=== PATIENT | male | born 1935 | race Caucasian/White ===

== ENCOUNTER → 2017-01-12 | Outpatient (CLI) | payer MEDICARE ==
--- NOTE | 2017-01-13 14:58 | ECHOS ---
DATE OF SERVICE: 01/12/2017 AGE: 81Y SEX: M HT: 69" WT: 170 lbs. Protocol Edgardo: X Others: Stress Echo Stage: 2 Dur. of Exercise: 4:00 *Heart Rate Blood Pressure *Rest: 75 Rest: 150/88 * *Max. Achieved: 140 Maximum BP: 200/95 85% PMHR: 117 100% PMHR: 138 *METS: 6.2 INDICATIONS: Angina. MEDICATIONS: Centrum Silver, aspirin, lisinopril, atorvastatin, atenolol. Patient was exercised for a total period of 4 minutes. A peak heart rate of 140 was achieved. Maximum blood pressure was 200/95 mmHg was noted. Resting EKG shows normal sinus rhythm with normal SD interval and QRS morphology suggestive of right bundle branch block pattern was noted. There were mild ST-T changes noted in lead V2 to V4. The baseline echocardiographic images show evidence of moderate degree of hypokinesia in the mid-basal and mid-inferior and inferior lateral wall in the immediate postexercise period. The inferior and inferolateral hypokinesia persists. Myocardial segment shows was normal increase in the wall thickness and contractility. FINAL IMPRESSION: 1. This stress echocardiographic study shows moderate to severe hypokinesia involving the mid and basal inferior wall and inferolateral segment which persists in the immediate postexercise period. This is suggestive of prior myocardial infarction. 2. Most of the stress test is inconclusive to diagnose ischemia because of the resting right bundle branch block and ST segment abnormalities. 3. Patient did not complain of any anginal pain during the test.
== END | disposition home or self-care (01) ==
LOC: RADNMMAIN 09:44
PROVIDERS: ATTEND Internal Medicine Geriatric Medicine
DX: I51.89 Other ill-defined heart diseases (principal); I25.119 Atherosclerotic heart disease of native coronary artery with unspecified angina pectoris
CPT/HCPCS: 93017; 93350

== ENCOUNTER → 2017-02-22 | Outpatient (CLI) | payer MEDICARE ==
--- NOTE | 2017-02-22 11:32 | US ---
EXAMINATION TYPE: US carotid duplex BILAT DATE OF EXAM: 02/22/2017 10:40 AM COMPARISON: NONE CLINICAL HISTORY: I65.29 stenosis of carotid artery. EXAM MEASUREMENTS: RIGHT: Peak Systolic Velocity (PSV) cm/sec ----- Right CCA: 57.5 ----- Right ICA: 65.3 ----- Right ECA: 89.2 ICA/CCA ratio: 1.1 RIGHT: End Diastole cm/sec ----- Right CCA: 11.3 ----- Right ICA: 20.0 ----- Right ECA: 5.0 LEFT: Peak Systolic Velocity (PSV) cm/sec ----- Left CCA: 65.3 ----- Left ICA: 75.7 ----- Left ECA: 89.7 ICA/CCA ratio: 1.2 LEFT: End Diastole cm/sec ----- Left CCA: 13.0 ----- Left ICA: 24.1 ----- Left ECA: 8.4 VERTEBRALS (direction of flow): Right Vertebral: Antegrade Left Vertebral: Antegrade Plaque seen in mid right CCA. Plaque seen in left bulb extending into prox ICA. Bilateral wall thic kening. No significant stenosis or elevated velocities seen. IMPRESSION: I do not see evidence of a hemodynamically significant stenosis in either carotid system. Criteria for Assigning % of Stenosis / Diameter reduction (Estimation based on the indirect measurements of the internal carotid artery velocities (ICA PSV). 1. Normal (no stenosis)=ICA PSV < 125 cm/s: ratio < 2.0: ICA EDV<40 cm/s. 2. Less than 50% stenosis=ICA PSV < 125 cm/s: ratio < 2.0: ICA EDV<40 cm/s. 3. 50 to 69% stenosis=ICA PSV of 125 to 230 cm/s: ration 2.0 ? 4.0: ICA EDV 40-100 cm/s. 4. Greater than 70% stenosis to near occlusion= ICA PSV > 230 cm/s: ratio > 4.0: ICA EDV > 100 cm/s. 5. Near occlusion= ICA PSV velocities may be low or undetectable: variable ratio and ICA EDV. 6. Total occlusion=unable to detect flow.
--- NOTE | 2017-02-22 12:29 | ECHOF ---
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 MEASUREMENTS -------- HEIGHT: 175.3 cm WEIGHT: 77.1 kg BP: 145/75 RVIDd: 2.9 cm (< 3.3) IVSd: 1.6 cm (0.6 - 1.1) LVIDd: 4.9 cm (3.9 - 5.3) LVPWd: 1.3 cm (0.6 - 1.1) IVSs: 2.1 cm LVIDs: 4.3 cm LVPWs: 1.3 cm LA Diam: 4.7 cm (2.7 - 3.8) LAESV Index (A-L): 46.00 ml/m Ao Diam: 3.2 cm (2.0 - 3.7) AV Cusp: 1.9 cm (1.5 - 2.6) LA Diam: 3.1 cm (2.7 - 3.8) MV EXCURSION: 17.180 mm (> 18.000) MV EF SLOPE: 102 mm/s (70 - 150) EPSS: 1.2 cm MV E Mario: 0.78 m/s MV DecT: 319 ms MV A Mario: 0.44 m/s MV E/A Ratio: 1.79 AR PHT: 1419 ms RAP: 5.00 mmHg RVSP: 48.14 mmHg FINDINGS -------- Sinus rhythm with extra systolic beats. This was a technically good study. There is moderate concentric left ventricular hypertrophy. Overall left ventricular systolic function is mild-moderately impaired with, an EF between 40 - 45 %. Basal posterior LV wall motion is akinetic. Basal inferior LV wall motion is akinetic. Mid posterior LV wall motion is akinetic. Mid inferior LV wall motion is hypokinetic. The right ventricle is normal in size. LA is severely dilated >40 ml/m2 The right atrial size is normal. Aortic valve is trileaflet and is mildly thickened. There is mild aortic regurgitation. The mitral valve leaflets are mildly thickened. Mild mitral annular calcification present. The peak and mean MV gradients are 2.51mmHg 0.99mmHg as measured by doppler. Mild tricuspid regurgitation present. There is mild to moderate pulmonary hypertension. The right ventricular systolic pressure, as measured by Doppler, is 48.14mmHg. Trace/mild (physiologic) pulmonic regurgitation. The aortic root size is normal. Normal inferior vena cava with normal inspiratory collapse consistent with estimated right atrial pressure of 5 mmHg. There is no pericardial effusion. CONCLUSIONS -------- 1. Sinus rhythm with extra systolic beats. 2. The right atrial size is normal. 3. Aortic valve is trileaflet and is mildly thickened. 4. There is mild aortic regurgitation. 5. The mitral valve leaflets are mildly thickened. 6. Mild mitral annular calcification present. 7. The peak and mean MV gradients are 2.51mmHg 0.99mmHg as measured by doppler. 8. Mild tricuspid regurgitation present. 9. There is mild to moderate pulmonary hypertension. 10. The right ventricular systolic pressure, as measured by Doppler, is 48.14mmHg. 11. Trace/mild (physiologic) pulmonic regurgitation. 12. This was a technically good study. 13. The aortic root size is normal. 14. Normal inferior vena cava with normal inspiratory collapse consistent with estimated right atrial pressure of 5 mmHg. 15. There is no pericardial effusion. 16. There is moderate concentric left ventricular hypertrophy. 17. Basal posterior LV wall motion is akinetic. 18. Basal inferior LV wall motion is akinetic. 19. Mid posterior LV wall motion is akinetic. 20. Mid inferior LV wall motion is hypokinetic. 21. The right ventricle is normal in size. 22. LA is severely dilated >40 ml/m2 LIFE SCIENCE RESEARCH ASSISTANT: Oj Young RDCS
== END ==
LOC: RADUSWWP 10:01
PROVIDERS: ATTEND Internal Medicine Geriatric Medicine
DX: I65.29 Occlusion and stenosis of unspecified carotid artery (principal)
CPT/HCPCS: 93306; 93880

== ENCOUNTER → 2018-07-05 | Outpatient (CLI) | payer MEDICARE ==
--- NOTE | 2018-07-05 09:54 | US ---
EXAMINATION TYPE: US carotid duplex BILAT DATE OF EXAM: 07/05/2018 COMPARISON: US CLINICAL HISTORY: I42.9 Cardiomyopathy,I65.29 Carotid occlusion/sten. EXAM MEASUREMENTS: RIGHT: Peak Systolic Velocity (PSV) cm/sec ----- Right CCA: 51.4 ----- Right ICA: 62.1 ----- Right ECA: 65.5 ICA/CCA ratio: 1.2 RIGHT: End Diastole cm/sec ----- Right CCA: 13.0 ----- Right ICA: 22.5 ----- Right ECA: 6.0 LEFT: Peak Systolic Velocity (PSV) cm/sec ----- Left CCA: 55.5 ----- Left ICA: 71.5 ----- Left ECA: 45.6 ICA/CCA ratio: 1.3 LEFT: End Diastole cm/sec ----- Left CCA: 11.0 ----- Left ICA: 26.2 ----- Left ECA: 6.7 VERTEBRALS (direction of flow): Right Vertebral: Antegrade Left Vertebral: Antegrade Rhythm: Arrhythmia IMPRESSION: Moderate atherosclerotic changes with no significant velocity elevations. Criteria for Assigning % of Stenosis / Diameter reduction (Estimation based on the indirect measurements of the internal carotid artery velocities (ICA PSV). 1. Normal (no stenosis)=ICA PSV < 125 cm/s: ratio < 2.0: ICA EDV<40 cm/s. 2. Less than 50% stenosis=ICA PSV < 125 cm/s: ratio < 2.0: ICA EDV<40 cm/s. 3. 50 to 69% stenosis=ICA PSV of 125 to 230 cm/s: ration 2.0 ? 4.0: ICA EDV 40-100 cm/s. 4. Greater than 70% stenosis to near occlusion= ICA PSV > 230 cm/s: ratio > 4.0: ICA EDV > 100 cm/s. 5. Near occlusion= ICA PSV velocities may be low or undetectable: variable ratio and ICA EDV. 6. Total occlusion=unable to detect flow.
--- NOTE | 2018-07-05 11:00 | ECHOF ---
Referral Reason:I42.9 Cardiomyopathy,I65.29 Carotid occlusion/sten MEASUREMENTS -------- HEIGHT: 175.3 cm WEIGHT: 76.2 kg BP: 167/79 RVIDd: 3.5 cm (< 3.3) IVSd: 1.6 cm (0.6 - 1.1) LVIDd: 5.2 cm (3.9 - 5.3) LVPWd: 1.5 cm (0.6 - 1.1) IVSs: 2.3 cm LVIDs: 4.4 cm LVPWs: 1.7 cm LA Diam: 4.2 cm (2.7 - 3.8) LAESV Index (A-L): 48.72 ml/m Ao Diam: 3.5 cm (2.0 - 3.7) AV Cusp: 2.0 cm (1.5 - 2.6) MV EXCURSION: 15.271 mm (> 18.000) MV EF SLOPE: 50 mm/s (70 - 150) EPSS: 1.5 cm AV maxP.38 mmHg AV meanP.72 mmHg AR PHT: 670 ms RAP: 5.00 mmHg RVSP: 58.03 mmHg FINDINGS -------- This was a technically good study. The left ventricular size is normal. There is moderate concentric left ventricular hypertrophy. O verall left ventricular systolic function is moderately impaired with, an EF between 35 - 40 %. Bas al inferior LV wall motion is hypokinetic. Basal inferoseptal LV wall motion is hypokinetic. The right ventricle is mildly enlarged. LA is severely dilated >40 ml/m2 The right atrium is normal in size. There is mild aortic valve sclerosis. There is mild aortic regurgitation. Peak/mean gradient acro ss the Aortic Valve is 11.38mmHg / 4.72mmHg. The mitral valve leaflets are mildly thickened. Mild mitral annular calcification present. Mild m itral regurgitation is present. Moderate tricuspid regurgitation present. There is severe pulmonary hypertension. The right ventr icular systolic pressure, as measured by Doppler, is 58.03mmHg. Moderate pulmonic regurgitation. The aortic root size is normal. Normal inferior vena cava with normal inspiratory collapse consistent with estimated right atrial pre ssure of 5 mmHg. There is no pericardial effusion. CONCLUSIONS -------- 1. This was a technically good study. 2. The left ventricular size is normal. 3. There is moderate concentric left ventricular hypertrophy. 4. Overall left ventricular systolic function is moderately impaired with, an EF between 35 - 40 %. 5. Basal inferior LV wall motion is hypokinetic. 6. Basal inferoseptal LV wall motion is hypokinetic. 7. The right ventricle is mildly enlarged. 8. LA is severely dilated >40 ml/m2 9. The right atrium is normal in size. 10. There is mild aortic valve sclerosis. 11. There is mild aortic regurgitation. 12. Peak/mean gradient across the Aortic Valve is 11.38mmHg / 4.72mmHg. 13. The mitral valve leaflets are mildly thickened. 14. Mild mitral annular calcification present. 15. Mild mitral regurgitation is present. 16. Moderate tricuspid regurgitation present. 17. There is severe pulmonary hypertension. 18. The right ventricular systolic pressure, as measured by Doppler, is 58.03mmHg. 19. Moderate pulmonic regurgitation. 20. The aortic root size is normal. 21. Normal inferior vena cava with normal inspiratory collapse consistent with estimated right atrial pressure of 5 mmHg. 22. There is no pericardial effusion. MARINE HABITAT RESOURCE SPECIALIST: Catherine Canales RDCS
== END | disposition home or self-care (01) ==
LOC: RADECHMAIN 08:12
PROVIDERS: ATTEND Internal Medicine Geriatric Medicine
DX: I65.23 Occlusion and stenosis of bilateral carotid arteries (principal); I08.3 Combined rheumatic disorders of mitral, aortic and tricuspid valves
CPT/HCPCS: 93306; 93880

== ENCOUNTER 2020-04-04 20:20 | Inpatient (IN) | payer MEDICARE ==
[2020-04-04 20:58] LABS: Basophils % (A) 0 %; Eosinophils # (A) 0.3 k/uL (0-0.7); Eosinophils % (A) 6 %; HCT 37.3 % (39.0-53.0); HGB 12.5 gm/dL (13.0-17.5); Lymphocytes # (A) 0.5 k/uL (1.0-4.8); Lymphocytes % (A) 7 %; MCH 33.9 pg (25.0-35.0); MCHC 33.6 g/dL (31.0-37.0); Macrocytosis Slight; Mean Platelet Volume 8.1; Monocytes # (A) 0.4 k/uL (0-1.0); Monocytes % (A) 6 %; Neutrophils # (A) 5.1 k/uL (1.3-7.7); Neutrophils % (A) 80 %; Platelet Count 145 k/uL (150-450); RDW 14.1 % (11.5-15.5); WBC 6.3 k/uL (3.8-10.6)
[2020-04-04 21:07] LABS: ALT 28 U/L (4-49); AST 50 U/L (17-59); African American GFR (CKD) >90 (>60 ml/min/1.73 sqM); Albumin 3.5 g/dL (3.5-5.0); Alkaline Phosphatase 87 U/L (38-126); Anion Gap 8 mmol/L; Blood Urea Nitrogen 17 mg/dL (9-20); Calcium 8.7 mg/dL (8.4-10.2); Carbon Dioxide 24 mmol/L (22-30); Chloride 106 mmol/L (98-107); Glucose 196 mg/dL (74-99); Magnesium 2.1 mg/dL (1.6-2.3); Non-African American GFR(CKD) 89 (>60 ml/min/1.73 sqM); Sodium 138 mmol/L (137-145); Total Bilirubin 0.4 mg/dL (0.2-1.3)
--- NOTE | 2020-04-04 21:11 | XR ---
EXAMINATION TYPE: XR chest 2V DATE OF EXAM: 04/04/2020 COMPARISON: NONE HISTORY: Dizziness TECHNIQUE: FINDINGS: Heart is enlarged. There is no heart failure. There is hiatal hernia. Costophrenic angles a re clear. Thoracic aorta is atheromatous. There are sternal wires. There is arthritic change in the r ight shoulder joint with severe subacromial joint space narrowing. IMPRESSION: Cardiomegaly. No active cardiopulmonary disease.
--- NOTE | 2020-04-04 21:12 | XR ---
EXAMINATION TYPE: XR ankle complete RT DATE OF EXAM: 04/04/2020 COMPARISON: NONE HISTORY: Pain TECHNIQUE: 3 views FINDINGS: There is nondisplaced oblique fracture distal fibula. There is lateral soft tissue swelling . Ankle mortise is anatomic. There is plantar calcaneal spurring. Subtalar joint is normal. IMPRESSION: Acute nondisplaced fracture distal fibula.
--- NOTE | 2020-04-04 21:14 | ED ---
Chest Pain HPI - General Chief Complaint: Chest Pain Stated Complaint: Chest Pain Time Seen by Provider: 04/04/20 20:20 Source: patient, EMS, RN notes reviewed, old records reviewed Mode of arrival: EMS - History of Present Illness Initial Comments: This is a 85-year-old male with a history of back problems and history of bypass surgery in the past who states she took 3 prednisone around 5:30 this afternoon and just before admission by EMS today he started developing sweats some lightheadedness he states he went down was out for for 10 or 15 minutes and could not get up sitting up calling 911. He has some nausea some vomiting and left-sided chest pain that felt like an elephant sitting on his chest for a period time is gone right now however. Moderate severity. He is not totally sure that he remembers going down. He also complains right ankle pain is results of the episode. He was brought in by EMS he did have evidence of possible is elevation in lead 3 and a time arrival he denied any nausea vomiting fevers chills sweats palpitations. MD Complaint: chest pain - Related Data Allergies Allergy/AdvReac Type Severity Reaction Status Date / Time Sulfa (Sulfonamide AdvReac Diarrhea Verified 04/04/20 22:10 Antibiotics) Review of Systems ROS Statement: Those systems with pertinent positive or pertinent negative responses have been documented in the HPI. ROS Other: All systems not noted in ROS Statement are negative. Past Medical History Past Medical History: Hypertension, Myocardial Infarction (ME) History of Any Multi-Drug Resistant Organisms: None Reported Past Surgical History: Coronary Bypass/CABG Smoking Status: Current every day smoker Past Alcohol Use History: None Reported Past Drug Use History: None Reported General Exam - General Exam Comments Initial Comments: This is a well-developed well-nourished awake alert oriented times 3 male General appearance: alert, in no apparent distress Head exam: Present: atraumatic, normocephalic, normal inspection Eye exam: Present: normal appearance, PERRL, EOMI. Absent: scleral icterus, conjunctival injection, periorbital swelling ENT exam: Present: normal exam, mucous membranes moist Neck exam: Present: normal inspection, full ROM, other. Absent: tenderness, meningismus, lymphadenopathy Respiratory exam: Present: normal lung sounds bilaterally. Absent: respiratory distress, wheezes, rales, rhonchi, stridor Cardiovascular Exam: Present: regular rate, normal rhythm, normal heart sounds. Absent: systolic murmur, diastolic murmur, rubs, gallop, clicks GI/Abdominal exam: Present: soft, normal bowel sounds. Absent: distended, tenderness, guarding, rebound, rigid Extremities exam: Present: normal inspection, full ROM, tenderness (Slight tenderness palpation with no step-off or crepitation), normal capillary refill. Absent: pedal edema, joint swelling, calf tenderness Back exam: Present: normal inspection Neurological exam: Present: alert, oriented X3, CN II-XII intact Psychiatric exam: Present: normal affect, normal mood Skin exam: Present: warm, dry, intact, normal color. Absent: rash Course Vital Signs 04/04/20 20:27 Temperature 98.4 F Pulse Rate 81 Respiratory 18 Rate Blood Pressure 143/85 O2 Sat by Pulse 97 Oximetry Procedures - Orthopedic Splinting/Casting Injury #1 Side: right Lower Extremity Injury Location: short leg, ankle Lower Extremity Immobilizer: posterior splint (Posterior short leg OCL 5 x 30 with Fitzgerald roll placed prior and Esteban wrap patient tolerated this well good neurovascular exam afterwards) Chest Pain MDM - MDM I did review the imaging and reports are is evidence of a distal fibula fracture on the right x-rays are unremarkable. I did discuss the patient's case with the patient as well as with Dr. Cano. Patient will be admitted cardiology consultation as well as orthopedic consultation. Disposition Clinical Impression: Syncope and collapse, Chest pain, Closed right ankle fracture Disposition: ADMITTED IP TO THIS [facility] Condition: Fair Referrals: Clifton Blake MD [Primary Care Provider] - 1-2 days
[2020-04-04 21:16] LABS: INR 1.1 (<1.2)
--- NOTE | 2020-04-04 21:57 | XR ---
EXAMINATION TYPE: XR tibia fibula RT DATE OF EXAM: 04/04/2020 COMPARISON: NONE HISTORY: Pain. Fall. TECHNIQUE: 3 views FINDINGS: There is nondisplaced oblique fracture distal fibula. Ankle mortise is anatomic. There is p lantar calcaneal spurring. 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 The patella is intact. IMPRESSION: Acute nondisplaced fracture of the distal fibula.
[2020-04-04] MEDS ORDERED: NITROGLYCERIN SL TABS 0.4 MG TAB SUBLINGUAL PRN (22:14)
--- NOTE | 2020-04-04 22:28 | ED ---
Medical Decision Making - Lab Data Result diagrams: 04/04/20 20:52 04/04/20 20:52 Lab Results 04/04/20 04/04/20 04/04/20 Range/Units 20:52 20:52 20:52 WBC 6.3 (3.8-10.6) k/uL RBC 3.70 L (4.30-5.90) m/uL Hgb 12.5 L (13.0-17.5) gm/dL Hct 37.3 L (39.0-53.0) % MCV 101.0 H (80.0-100.0) fL MCH 33.9 (25.0-35.0) pg MCHC 33.6 (31.0-37.0) g/dL RDW 14.1 (11.5-15.5) % Plt Count 145 L (150-450) k/uL Neutrophils % 80 % Lymphocytes % 7 % Monocytes % 6 % Eosinophils % 6 % Basophils % 0 % Neutrophils # 5.1 (1.3-7.7) k/uL Lymphocytes # 0.5 L (1.0-4.8) k/uL Monocytes # 0.4 (0-1.0) k/uL Eosinophils # 0.3 (0-0.7) k/uL Basophils # 0.0 (0-0.2) k/uL Macrocytosis Slight PT 11.0 (9.0-12.0) sec INR 1.1 (<1.2) APTT 22.0 (22.0-30.0) sec Sodium 138 (137-145) mmol/L Potassium 4.0 (3.5-5.1) mmol/L Chloride 106 (98-107) mmol/L Carbon Dioxide 24 (22-30) mmol/L Anion Gap 8 mmol/L BUN 17 (9-20) mg/dL Creatinine 0.63 L (0.66-1.25) mg/dL Est GFR (CKD-EPI)AfAm >90 (>60 ml/min/1.73 sqM) Est GFR (CKD-EPI)NonAf 89 (>60 ml/min/1.73 sqM) Glucose 196 H (74-99) mg/dL Calcium 8.7 (8.4-10.2) mg/dL Magnesium 2.1 (1.6-2.3) mg/dL Total Bilirubin 0.4 (0.2-1.3) mg/dL AST 50 (17-59) U/L ALT 28 (4-49) U/L Alkaline Phosphatase 87 (38-126) U/L Troponin I (0.000-0.034) ng/mL NT-Pro-B Natriuret Pep pg/mL Total Protein 6.0 L (6.3-8.2) g/dL Albumin 3.5 (3.5-5.0) g/dL Lipase 51 (23-300) U/L 04/04/20 04/04/20 Range/Units 20:52 20:52 WBC (3.8-10.6) k/uL RBC (4.30-5.90) m/uL Hgb (13.0-17.5) gm/dL Hct (39.0-53.0) % MCV (80.0-100.0) fL MCH (25.0-35.0) pg MCHC (31.0-37.0) g/dL RDW (11.5-15.5) % Plt Count (150-450) k/uL Neutrophils % % Lymphocytes % % Monocytes % % Eosinophils % % Basophils % % Neutrophils # (1.3-7.7) k/uL Lymphocytes # (1.0-4.8) k/uL Monocytes # (0-1.0) k/uL Eosinophils # (0-0.7) k/uL Basophils # (0-0.2) k/uL Macrocytosis PT (9.0-12.0) sec INR (<1.2) APTT (22.0-30.0) sec Sodium (137-145) mmol/L Potassium (3.5-5.1) mmol/L Chloride (98-107) mmol/L Carbon Dioxide (22-30) mmol/L Anion Gap mmol/L BUN (9-20) mg/dL Creatinine (0.66-1.25) mg/dL Est GFR (CKD-EPI)AfAm (>60 ml/min/1.73 sqM) Est GFR (CKD-EPI)NonAf (>60 ml/min/1.73 sqM) Glucose (74-99) mg/dL Calcium (8.4-10.2) mg/dL Magnesium (1.6-2.3) mg/dL Total Bilirubin (0.2-1.3) mg/dL AST (17-59) U/L ALT (4-49) U/L Alkaline Phosphatase (38-126) U/L Troponin I 0.030 (0.000-0.034) ng/mL NT-Pro-B Natriuret Pep 914 pg/mL Total Protein (6.3-8.2) g/dL Albumin (3.5-5.0) g/dL Lipase (23-300) U/L - EKG Data -: EKG Interpreted by Me EKG Comments: EKG showed sinus rhythm with artifact in sinus arrhythmia QRS 146 QT since QTC 4:30/4 right ear right bundle-branch block pattern plus RVH also old inferior changes is a consistent finding with EKG is 04/24/13 and with one submitted by EMS Disposition Clinical Impression: Syncope and collapse, Chest pain, Closed right ankle fracture Disposition: ADMITTED IP TO THIS [facility] Condition: Fair Referrals: Clifton Blake MD [Primary Care Provider] - 1-2 days
[2020-04-04] MEDS: HYDROcodone/APAP 5-325MG 1 EACH TAB PO PRN (23:02)
[2020-04-05 04:01] LABS: Cholesterol 108 mg/dL (<200); HDL Cholesterol 32 mg/dL (40-60); LDL Cholesterol,Calculated 69 mg/dL (0-99); Triglycerides 33 mg/dL (<150)
[2020-04-05] MEDS ORDERED: ASPIRIN 325 MG TAB PO SCH (09:00)
[2020-04-05] MEDS ORDERED: ATORVASTATIN 80 MG TAB PO STA (09:33)
[2020-04-05] MEDS ORDERED: NITROGLYCERIN SL TABS 0.4 MG TAB SUBLINGUAL PRN (09:33)
[2020-04-05] MEDS ORDERED: ALPRAZolam 0.5 MG TAB PO PRN (09:33)
[2020-04-05] MEDS ORDERED: ASPIRIN 325 MG TAB PO STA (09:33)
[2020-04-05] MEDS ORDERED: SODIUM CHLORIDE 0.9% 1,000 ML in EMPTY BAG 1 BAG IV ONE (09:33)
[2020-04-05] MEDS ORDERED: ALPRAZolam 0.25 MG TAB PO PRN (09:33)
[2020-04-05] MEDS: CARVEDILOL 3.125 MG TAB PO SCH ×2 (09:41→21:15)
--- NOTE | 2020-04-05 10:53 | ECHOF ---
Referral Reason:mi MEASUREMENTS -------- HEIGHT: 175.3 cm WEIGHT: 54.9 kg BP: 135/69 IVSd: 1.1 cm (0.6 - 1.1) LVIDd: 4.9 cm (3.9 - 5.3) LVPWd: 1.2 cm (0.6 - 1.1) IVSs: 1.8 cm LVIDs: 3.0 cm LVPWs: 1.9 cm LAESV Index (A-L): 39.23 ml/m Ao Diam: 2.9 cm (2.0 - 3.7) AV Cusp: 1.3 cm (1.5 - 2.6) LA Diam: 3.7 cm (2.7 - 3.8) MV EXCURSION: 16.659 mm (> 18.000) MV EF SLOPE: 48 mm/s (70 - 150) EPSS: 1.5 cm MV E Mario: 0.78 m/s MV DecT: 190 ms MV A Mario: 0.71 m/s MV E/A Ratio: 1.09 AV maxP.84 mmHg AV meanP.82 mmHg RAP: 5.00 mmHg RVSP: 39.79 mmHg FINDINGS -------- Sinus rhythm. This was a technically difficult study with suboptimal views. The left ventricular size is normal. There is mild concentric left ventricular hypertrophy. Overa ll left ventricular systolic function is mild-moderately impaired with, an EF between 40 - 45 %. In creased LAP Grade 3 Diastolic Dysfunction. Mid to basal inferiorlateral is hypokinetic The right ventricle is normal in size. LA is moderately dilated 34-39 ml/m2 The right atrial size is normal. Lumason used Unable to visualize the septum. Aortic valve is trileaflet and is mildly thickened. There is mild aortic regurgitation. There is mild aortic stenosis present. Peak/mean gradient across the Aortic Valve is 16.84mmHg / 8.82mmHg. The mitral valve is normal. The mitral valve leaflets are mildly thickened. [id number] mitr al regurgitation is present. The tricuspid valve appears structurally normal. Mild tricuspid regurgitation present. There is m ild pulmonary hypertension. The right ventricular systolic pressure, as measured by Doppler, is 39. 79mmHg. There is no pulmonic regurgitation present. The aortic root size is normal. IVC Not well visulized. There is no pericardial effusion. CONCLUSIONS -------- 1. Sinus rhythm. 2. This was a technically difficult study with suboptimal views. 3. The left ventricular size is normal. 4. There is mild concentric left ventricular hypertrophy. 5. Overall left ventricular systolic function is mild-moderately impaired with, an EF between 40 - 45 %. 6. Increased LAP Grade 3 Diastolic Dysfunction. 7. Mid to basal inferiorlateral is hypokinetic 8. The right ventricle is normal in size. 9. LA is moderately dilated 34-39 ml/m2 10. The right atrial size is normal. 11. Lumason used 12. Unable to visualize the septum. 13. Aortic valve is trileaflet and is mildly thickened. 14. There is mild aortic regurgitation. 15. There is mild aortic stenosis present. 16. Peak/mean gradient across the Aortic Valve is 16.84mmHg / 8.82mmHg. 17. The mitral valve is normal. 18. The mitral valve leaflets are mildly thickened. 19. [id number] mitral regurgitation is present. 20. The tricuspid valve appears structurally normal. 21. Mild tricuspid regurgitation present. 22. There is mild pulmonary hypertension. 23. The right ventricular systolic pressure, as measured by Doppler, is 39.79mmHg. 24. There is no pulmonic regurgitation present. 25. The aortic root size is normal. 26. IVC Not well visulized. 27. There is no pericardial effusion. RN CRITICAL CARE: Annia Edwards PABLO
--- NOTE | 2020-04-05 11:08 | CONS ---
CONSULTATION HISTORY OF PRESENT ILLNESS: Donovan Witt is an 85-year-old gentleman with history of coronary artery disease status post CABG in 1985 and subsequent catheterization and angioplasty somewhere around 1999 and 2012, who presented to hospital with chest pain. The patient initially started having back pain for which he had taken a steroid Dosepak and subsequently developed an episode of chest pressure that he describes as intermittent episodes of precordial chest tightness, moderate intensity, associated with some diaphoresis. This pain happened at rest. He had 2 of these episodes and then he had a syncopal event. He had bladder incontinence. He recovered spontaneously. EMS was called and then the patient came to the ER from where he is admitted. His EKG shows atrial fibrillation with right bundle branch block and extensive ST-T wave changes and evidence of prior inferior wall myocardial infarction. In the process, he also had a fracture of the distal fibula and is currently wearing a cast for the pain. The patient had a chest x- ray that revealed cardiomegaly but was otherwise within normal limits. I have been consulted because of his clinical presentation. He had 2 sets of troponins, 1 of which came back elevated at 0.163. His LDL cholesterol is normal at 69 and his hemoglobin is 12.5 with a platelet count of 145. Creatinine is normal. At the time of my evaluation this morning, patient is comfortable at rest and hemodynamically stable and free of any symptoms. The patient had an echocardiogram in 2018 that showed an ejection fraction of 35% to 40% with mild aortic stenosis and there was severe pulmonary hypertension. The patient had a stress test in 2017 that showed evidence of prior inferior wall myocardial infarction without any evidence of ischemia. Given the patient's clinical presentation and the elevated troponins, I advised him to undergo cardiac catheterization for further evaluation. He has been explained of risks, benefits and alternatives, understood and accepted. PAST MEDICAL HISTORY: Significant for CAD, status post CABG, status post prior angioplasty, hypertension, dyslipidemia, and back pain. The patient has atrial fibrillation. This is new compared to an EKG in 2017. Patient is not on oral anticoagulant. CURRENT MEDICATIONS: Include prednisone, multivitamin, Zestril, Advil, Coreg, Lipitor and aspirin. ALLERGIC: TO SULFA. FAMILY HISTORY: Negative for premature coronary artery disease. SOCIAL HISTORY: Negative for smoking, EtOH abuse or drug abuse. REVIEW OF SYSTEMS: HEENT is unremarkable. CARDIAC as described above. RESPIRATORY as described above. GI negative. GENITOURINARY negative. ALLERGY negative. IMMUNOLOGY: Negative. SKIN negative. ENDOCRINE: Negative. DERM negative. CONSTITUTIONAL negative. ONCOLOGICAL negative. SUPERVISING BAILIFF significant for syncope. PHYSICAL EXAMINATION: On exam, patient is comfortable at rest. Heart rate is 60 beats per minute. Blood pressure is 135/69, respiratory O2 sat is 95% on room air. NECK: There is no jugular venous distention. Carotid upstroke is diminished. There is no bruit. CHEST exam reveals good air entry bilaterally. HEART exam reveals first and second heart sounds. No gallop. No murmur. No rub. ABDOMEN is soft, nontender. Exam of EXTREMITIES did not reveal any edema. Peripheral pulses are felt. There is a cast over the right leg. LAB: Show that the potassium is 4, creatinine is 0.6. Tropes are elevated. LDL is normal. Hemoglobin is normal. ASSESSMENT: 1. Acute non ST-segment elevation myocardial infarction. 2. Syncope. 3. Coronary artery disease, status post coronary artery bypass grafting. 4. Persistent atrial fibrillation with controlled ventricular rate. PLAN: Patient will undergo cardiac catheterization. I am going to review his prior angiographic data and we need to start him on oral anticoagulant upon discharge. I will obtain a 2D echo on him. MMODL / IJN: [id number] /
--- NOTE | 2020-04-05 11:46 | P.HPIM ---
History of Present Illness H&P Date: 04/05/20 Chief Complaint: Chest pain, syncope This is an 85-year-old male patient of Dr. Blake with past medical history of hypertension, myocardial infarction, coronary artery disease status post CABG in 1983 with stent placement in 1999 and 2012, chronic atrial fibrillation not on anticoagulation. Patient states that he he has had ongoing problems with his lower back and was [facility] by Dr. [facility] and saw Dr. Bowles yesterday in the office. Patient was placed on prednisone tapering dose and took his first dose with milk yesterday afternoon. He states he was watching TV and about an hour later he got up to go into the kitchen and was feeling lightheaded, suddenly developed chest pain along with sweats and that is going to pass out. He grabbed the chair and the table and up falling to the floor with loss of consciousness with bladder incontinence. He states he got up with some difficulty and decided call EMS and he was brought into the hospital. Patient was afebrile, heart rate 81, blood pressure initially 143/85, pulse ox 97% on room air. WBC 6.3, hemoglobin 12.5, platelet count 145. Electrolytes within normal limits, BUN 17 creatinine 0.63, but sugar 196. Patient does not have history of diabetes. Troponin 0.030, 0.163, 0.85. Triglycerides 33, cholesterol 108, LDL 69, HDL 32. Tib-fib x-ray showed an acute nondisplaced distal fibula fracture. Echocardiogram revealed EF of 40-45% with mild concentric left ventricular hypertrophy, mild aortic regurgitation, mild aortic stenosis, mild to moderate mitral regurgitation, mild tricuspid regurgitation, mild pulmonary hypertension. Patient admitted to the cardiac stepdown unit and consult in place with orthopedics and cardiology. Review of Systems Constitutional: Denies chills, Denies fatigue, Denies fever, Denies lethargy, Denies malaise, Denies poor appetite, Denies weight loss Eyes: denies blurred vision, denies pain Ears, nose, mouth and throat: Denies dental pain, Denies dysphagia, Denies nasal congestion, Denies nasal discharge, Denies vertigo Cardiovascular: Reports chest pain, Reports lightheadedness, Reports syncope, Denies decreased exercise tolerance, Denies dyspnea on exertion, Denies shortness of breath Respiratory: Denies cough, Denies cough with sputum, Denies dyspnea, Denies excessive sputum, Denies hemoptysis, Denies home oxygen, Denies respiratory infections, Denies wheezing Gastrointestinal: Denies abdominal pain, Denies diarrhea, Denies loss of appetite, Denies nausea, Denies vomiting Genitourinary: Denies dysuria, Denies urinary frequency, Denies urinary retention Musculoskeletal: Denies frequent falls, Denies gait dysfunction, Denies muscle weakness, Denies myalgias Integumentary: Denies pruritus, Denies rash, Denies wounds Neurological: Reports syncope, Denies change in mentation, Denies change in speech, Denies gait dysfunction, Denies numbness, Denies seizures, Denies weakness Psychiatric: Denies anxiety, Denies depression Endocrine: Denies fatigue, Denies weight change Past Medical History Past Medical History: Hypertension, Myocardial Infarction ([place]) Last Myocardial Infarction Date:: unknown History of Any Multi-Drug Resistant Organisms: None Reported Past Surgical History: Coronary Bypass/CABG, Heart Catheterization With Stent Additional Past Surgical History / Comment(s): 1983 CABG Past Anesthesia/Blood Transfusion Reactions: No Reported Reaction Past Psychological History: No Psychological Hx Reported Smoking Status: Current every day smoker Past Alcohol Use History: Daily Additional Past Alcohol Use History / Comment(s): pt states he spokes a pipe a day for 50-60 years. He drinks one beer per day. Patient currently resides alone. Past Drug Use History: None Reported - Past Family History Father Additional Family Medical History / Comment(s): Patient's parents are both and patient does not recall any other medical history. He also does not know medical history of any siblings. Medications and Allergies Home Medications Medication Instructions Recorded Confirmed Type Aspirin 325 mg PO DAILY 04/04/20 04/04/20 History Atorvastatin [Lipitor] 10 mg PO HS 04/04/20 04/04/20 History Baclofen [Lioresal] 5 mg PO BID PRN 04/04/20 04/04/20 History Carvedilol [Coreg] 3.125 mg PO BID 04/04/20 04/04/20 History Ibuprofen [Advil] 200 mg PO Q8HR PRN 04/04/20 04/04/20 History Lisinopril [Zestril] 2.5 mg PO DAILY 04/04/20 04/04/20 History Multivit-Min/FA/Lycopen/Lutein 1 tab PO DAILY 04/04/20 04/04/20 History [Centrum Silver Tablet] Nitroglycerin Sl Tabs [Nitrostat] 0.4 mg SL Q5M PRN 04/04/20 04/04/20 History Ubidecarenone [Co Q-10] 100 mg PO BID 04/04/20 04/04/20 History predniSONE See Taper PO DAILY 04/04/20 04/04/20 History Allergies Allergy/AdvReac Type Severity Reaction Status Date / Time amoxicillin AdvReac Rash/Hives Verified 04/05/20 09:50 Sulfa (Sulfonamide AdvReac Diarrhea Verified 04/04/20 22:10 Antibiotics) Physical Exam Vitals: Vital Signs Temp Pulse Pulse Resp BP BP Pulse Ox 04/05/20 03:55 97.9 F 61 16 135/69 95 04/04/20 23:43 76 18 04/04/20 23:42 97.9 F 76 18 174/84 94 L 04/04/20 23:26 97.9 F 76 18 174/84 94 L 04/04/20 23:00 71 18 133/75 96 04/04/20 22:00 63 16 121/71 97 04/04/20 20:27 98.4 F 81 18 143/85 97 Intake and Output 04/04/20 04/05/20 04/05/20 22:59 06:59 14:59 Intake Total 150 Output Total 650 Balance -500 Intake: Oral 150 Output: Urine 650 Other: Voiding Method Urinal # Voids 2 Weight 82.1 kg 55 kg Gen: This is an 85-year-old male. Patient is sitting on the edge of the bed and appears to be comfortable in no acute distress. HEENT: Head is atraumatic, normocephalic. Pupils equal, round. Sclerae is anicteric. NECK: Supple. No JVD. No lymphadenopathy. No thyromegaly. LUNGS: Clear to auscultation. No wheezes or rhonchi. No intercostal retra ctions. HEART: Irregularly irregular rate and rhythm. No murmur. ABDOMEN: Soft. Bowel sounds are present. No masses. No tenderness. EXTREMITIES: No pedal edema. No calf tenderness. OCL splint on the right lower leg. NEUROLOGICAL: Patient is awake, alert and oriented x3. Cranial nerves 2 through 12 are grossly intact. Results CBC & Chem 7: 04/04/20 20:52 04/04/20 20:52 Labs: Abnormal Lab Results - Last 24 Hours (Table) 04/04/20 04/04/20 04/05/20 Range/Units 20:52 20:52 03:21 RBC 3.70 L (4.30-5.90) m/uL Hgb 12.5 L (13.0-17.5) gm/dL Hct 37.3 L (39.0-53.0) % MCV 101.0 H (80.0-100.0) fL Plt Count 145 L (150-450) k/uL Lymphocytes # 0.5 L (1.0-4.8) k/uL Creatinine 0.63 L (0.66-1.25) mg/dL Glucose 196 H (74-99) mg/dL Troponin I 0.163 H* (0.000-0.034) ng/mL Total Protein 6.0 L (6.3-8.2) g/dL HDL Cholesterol (40-60) mg/dL 04/05/20 Range/Units 03:21 RBC (4.30-5.90) m/uL Hgb (13.0-17.5) gm/dL Hct (39.0-53.0) % MCV (80.0-100.0) fL Plt Count (150-450) k/uL Lymphocytes # (1.0-4.8) k/uL Creatinine (0.66-1.25) mg/dL Glucose (74-99) mg/dL Troponin I (0.000-0.034) ng/mL Total Protein (6.3-8.2) g/dL HDL Cholesterol 32 L (40-60) mg/dL Thrombosis Risk Factor Assmnt - DVT/VTE Prophylaxis DVT/VTE Prophylaxis: Pharmacologic Prophylaxis ordered - Choose All That Apply Any of the Below Risk Factors Present?: Yes Other Risk Factors: Yes Each Risk Factor Represents 3 Points: Age 75 years or older Other congenital or acquired thrombophilia - If yes, enter type in comment: No Thrombosis Risk Factor Assessment Total Risk Factor Score: 3 Thrombosis Risk Factor Assessment Level: Moderate Risk Assessment and Plan Plan: 1. Chest pain and syncopal episode secondary to non-ST elevated myocardial infarction. 2. Non-ST elevated myocardial infarction. Cardiology consult, heart catheterization today. Continue aspirin 325 mg daily, atorvastatin 10 mg at bedtime, Coreg 3.125 mg twice daily, Nitrostat as needed. 3. Hypertension. Continue Coreg. 4. History of coronary artery disease with previous CABG and stent placement done in 1999 and 2012. 5. Chronic atrial fibrillation, controlled rate. 6. GI prophylaxis. Protonix. 7. Tobacco use and dependence. Patient smokes a pipe. 8. COVID-19 infection not present. Patient will be admitted to the hospital for a minimum of 2 night stay. Discharge plan: Return home. Impression and plan of care have been directed as dictated by the signing physician. Tahira Ospina nurse practitioner acting as scribe for signing physician.
[2020-04-05 12:41] VITALS: RESP 18
--- NOTE | 2020-04-05 13:19 | P.CNOR ---
<Damon Nava - Last Filed: 04/05/20 13:04> History of Present Illness - [facility] Consult date: 04/05/20 History of present illness: This patient is an 85-year-old male with past medical history of hypertension, myocardial infarction, CAD with stent placement, chronic atrial fibrillation not currently on anticoagulation presented to [facility] ER yesterday via ambulance after experiencing a syncopal episode in his home. The patient was seen in the office yesterday by Dr. Bowles. The patient was placed on a prednisone taper. The patient states he took his first dose yesterday afternoon, he states about an hour or 2 later he got up to go to the kitchen and began feeling very lightheaded, and started to fall to the ground. He states he did grab the table as he fell. He states he does not remember much following the fall. He is unsure when he injured his ankle. The patient states he ended up getting up after 10-15 minutes with some difficulty, and decided to call EMS. Upon arrival to the emergency department, x-rays of the right ankle revealed an acute distal fibula fracture. The patient was admitted under the care of internal medicine with consult placed to cardiology and orthopedics in regards to his right ankle fracture. At the time of my exam, the patient is complaining of very mild pain in the right ankle. He states he has been able to ambulate on the right ankle without significant pain. He denies pain anywhere else in the body. He has no additional complaints. He denies numbness or tingling of the right lower extremity. Vital signs stable. Past Medical History Past Medical History: Hypertension, Myocardial Infarction ([place]) Last Myocardial Infarction Date:: unknown History of Any Multi-Drug Resistant Organisms: None Reported Past Surgical History: Coronary Bypass/CABG, Heart Catheterization With Stent Additional Past Surgical History / Comment(s): 1983 CABG Past Anesthesia/Blood Transfusion Reactions: No Reported Reaction Past Psychological History: No Psychological Hx Reported Smoking Status: Current every day smoker Past Alcohol Use History: Daily Additional Past Alcohol Use History / Comment(s): pt states he spokes a pipe a day for 50-60 years. He drinks one beer per day. Patient currently resides alone. Past Drug Use History: None Reported - Past Family History Father Additional Family Medical History / Comment(s): Patient's parents are both and patient does not recall any other medical history. He also does not know medical history of any siblings. Medications and Allergies Home Medications Medication Instructions Recorded Confirmed Type Aspirin 325 mg PO DAILY 04/04/20 04/04/20 History Atorvastatin [Lipitor] 10 mg PO HS 04/04/20 04/04/20 History Baclofen [Lioresal] 5 mg PO BID PRN 04/04/20 04/04/20 History Carvedilol [Coreg] 3.125 mg PO BID 04/04/20 04/04/20 History Ibuprofen [Advil] 200 mg PO Q8HR PRN 04/04/20 04/04/20 History Lisinopril [Zestril] 2.5 mg PO DAILY 04/04/20 04/04/20 History Multivit-Min/FA/Lycopen/Lutein 1 tab PO DAILY 04/04/20 04/04/20 History [Centrum Silver Tablet] Nitroglycerin Sl Tabs [Nitrostat] 0.4 mg SL Q5M PRN 04/04/20 04/04/20 History Ubidecarenone [Co Q-10] 100 mg PO BID 04/04/20 04/04/20 History predniSONE See Taper PO DAILY 04/04/20 04/04/20 History Allergies Allergy/AdvReac Type Severity Reaction Status Date / Time amoxicillin AdvReac Rash/Hives Verified 04/05/20 09:50 Sulfa (Sulfonamide AdvReac Diarrhea Verified 04/04/20 22:10 Antibiotics) Physical Examination At the time of my examination, the patient is sitting up in bed in no apparent distress. He is alert and orientated x3. His head appears normocephalic and atraumatic. His breathing appears nonlabored. His bilateral upper extremities reveal no signs of trauma or obvious deformities. His left lower extremity shows no signs of trauma or any obvious deformities. On inspection of the right lower extremity, there is a short-leg splint in place. No pain on palpation of the proximal tibia or fibula, knee, thigh, or hip. No pain PROM of the hip or knee. The splint is taken down and reveals mild swelling of the lateral ankle. No open wounds or lacerations. There is minimal pain on palpation of the lateral malleolus. Minimal pain with passive range of motion of the ankle. Patient has full active range of motion of the ankle. Dorsalis pedis pulse palpable. The right foot is warm and well perfused with brisk capillary refill distally. Motor and sensory function appear to be intact to right lower extremity. Bilateral calves are soft and nontender to palpation. Results Right ankle x-rays 04/04/2020: Minimally displaced Robertson B distal fibula frac ture. Stable ankle mortise. Right tibia-fibula x-rays 04/04/2020: Minimally displaced distal fibula fracture. No fracture is visualized of the proximal fibula or tibia. - Labs Labs: Abnormal Lab Results - Last 24 Hours (Table) 04/04/20 04/04/20 04/05/20 Range/Units 20:52 20:52 03:21 RBC 3.70 L (4.30-5.90) m/uL Hgb 12.5 L (13.0-17.5) gm/dL Hct 37.3 L (39.0-53.0) % MCV 101.0 H (80.0-100.0) fL Plt Count 145 L (150-450) k/uL Lymphocytes # 0.5 L (1.0-4.8) k/uL Creatinine 0.63 L (0.66-1.25) mg/dL Glucose 196 H (74-99) mg/dL Troponin I 0.163 H* (0.000-0.034) ng/mL Total Protein 6.0 L (6.3-8.2) g/dL HDL Cholesterol (40-60) mg/dL 04/05/20 04/05/20 Range/Units 03:21 09:11 RBC (4.30-5.90) m/uL Hgb (13.0-17.5) gm/dL Hct (39.0-53.0) % MCV (80.0-100.0) fL Plt Count (150-450) k/uL Lymphocytes # (1.0-4.8) k/uL Creatinine (0.66-1.25) mg/dL Glucose (74-99) mg/dL Troponin I 0.185 H* (0.000-0.034) ng/mL Total Protein (6.3-8.2) g/dL HDL Cholesterol 32 L (40-60) mg/dL H & H 04/04/20 Range/Units 20:52 Hgb 12.5 L (13.0-17.5) gm/dL Hct 37.3 L (39.0-53.0) % Coagulation 04/04/20 Range/Units 20:52 INR 1.1 (<1.2) Result Diagrams: 04/04/20 20:52 04/04/20 20:52 Assessment and Plan Assessment: Minimally displaced Robertson B distal fibula fracture, right ankle. Plan: - I discussed the clinical and imaging findings with the patient. The patient was discussed with Dr. Bowles. There is no surgical intervention planned during this hospital stay. A tall CAM boot was ordered. The patient may bear weight to tolerance on the right ankle while wearing the tall CAM boot. - Patient should ice and elevate the right ankle for swelling and pain control. - We will obtian a 25- hydroxy vitamin D level to assess for vitamin D insufficiency. - The patient will follow-up in the office in 1 week for repeat x-rays of the right ankle. Patient is ok for discharge from an orthopedic standpoint. <Aaron Bowles - Last Filed: 04/05/20 15:47> Physical Examination Osteopathic Statement: *. No significant issues noted on an osteopathic structural exam other than those noted in the History and Physical/Consult. Results - Labs Labs: Abnormal Lab Results - Last 24 Hours (Table) 04/04/20 04/04/20 04/05/20 Range/Units 20:52 20:52 03:21 RBC 3.70 L (4.30-5.90) m/uL Hgb 12.5 L (13.0-17.5) gm/dL Hct 37.3 L (39.0-53.0) % MCV 101.0 H (80.0-100.0) fL Plt Count 145 L (150-450) k/uL Lymphocytes # 0.5 L (1.0-4.8) k/uL Creatinine 0.63 L (0.66-1.25) mg/dL Glucose 196 H (74-99) mg/dL Troponin I 0.163 H* (0.000-0.034) ng/mL Total Protein 6.0 L (6.3-8.2) g/dL HDL Cholesterol (40-60) mg/dL 04/05/20 04/05/20 Range/Units 03:21 09:11 RBC (4.30-5.90) m/uL Hgb (13.0-17.5) gm/dL Hct (39.0-53.0) % MCV (80.0-100.0) fL Plt Count (150-450) k/uL Lymphocytes # (1.0-4.8) k/uL Creatinine (0.66-1.25) mg/dL Glucose (74-99) mg/dL Troponin I 0.185 H* (0.000-0.034) ng/mL Total Protein (6.3-8.2) g/dL HDL Cholesterol 32 L (40-60) mg/dL H & H 04/04/20 Range/Units 20:52 Hgb 12.5 L (13.0-17.5) gm/dL Hct 37.3 L (39.0-53.0) % Coagulation 04/04/20 Range/Units 20:52 INR 1.1 (<1.2) Result Diagrams: 04/04/20 20:52 04/04/20 20:52 Assessment and Plan Plan: I reviewed the case with carlos Nava. I also reviewed the images of the ankle. I also reviewed them with the foot and ankle specialist. The patient has a minimally displaced lateral malleolus fracture with a maintained joint space. He is placed in a well-padded boot and we are not planning acute surgical intervention at this point. From an orthopedic standpoint it is okay for her to be discharged with the boot intact and to follow up with our office in approximate 1 week's time for recheck evaluation and repeat imaging and further management recommendations and treatment.
[2020-04-05] MEDS ORDERED: IV FLUID CONTINUATION 1,000 ML IV ONE (15:12)
[2020-04-05] MEDS ORDERED: LIDOCAINE 1% INJ 10MG/ML (20 ML MDV) ONE (15:21)
[2020-04-05] MEDS ORDERED: fentaNYL (PF) 50 MCG/ML 2 ML AMP ONE (15:21)
[2020-04-05] MEDS ORDERED: MIDAZOLAM 2 MG/2 ML VIAL IV ONE (15:29)
[2020-04-05] MEDS ORDERED: LIDOCAINE 1% INJ 10MG/ML (20 ML MDV) SQ ONE (15:29)
[2020-04-05] MEDS ORDERED: fentaNYL (PF) 50 MCG/ML 2 ML AMP IV ONE (15:30)
[2020-04-05] MEDS ORDERED: MIDAZOLAM 2 MG/2 ML VIAL IVP ONE ×2 (15:44→15:56)
[2020-04-05] MEDS ORDERED: RX INFO: IV CONTRAST WAS GIVEN 1 EACH MISC MISCELLANE PRN (16:27)
[2020-04-05] MEDS ORDERED: IOPAMIDOL-370 125ML BTL INJ ONE (16:28)
--- NOTE | 2020-04-05 17:04 | CC ---
CARDIAC CATHETERIZATION REPORT INDICATION: [id number] elevation-NM and syncope in a patient with known CAD, status post CABG with RICKS to LAD, RICKS to circumflex coronary artery and angioplasty of sycuan right coronary artery. PROCEDURE NOTE: After obtaining informed consent, left heart catheterization and coronary angiogram were performed via the right femoral artery. The patient has a very tortuous iliac vessel. The initial regular sheath was exchanged over a Glidewire on to a 25 cm long sheath, but because of inability to advance the catheters and the sheath kinking, this was exchanged over to a 23 cm Marker Tip sheath. The cardiac catheterization was completed uneventfully through this. The patient tolerated the procedure well without any obvious immediate complications. Manual hemostasis was obtained. The patient received moderate conscious sedation. Total sedation time was 55 minutes. FINDINGS: 1. HEMODYNAMICS: Central aortic pressure is 130/80 mm. 2. ANGIOGRAPHIC DATA: [place] CORONARIES: The left main coronary artery shows a 99% stenosis. Divides into LAD and circumflex coronary artery. Both are subtotally occluded proximally. RIGHT CORONARY ARTERY: Right coronary artery is a large dominant vessel and was engaged using a nina catheter. It was previously stented from ostium all the way down into the distal RCA. The vessel appears patent. The images were subselective because of the tortuosity of the iliac and inability to manipulate the catheter. The IMA was subselectively engaged. We could not obtain optimal views of the IMA. CONCLUSIONS: 1. [place] 3-vessel coronary artery disease. 2. Occluded venous graft on a previous catheterization. 3. Occluded RICKS on a previous catheterization. 4. Patent stent within the right coronary artery. PLAN: Patient will be treated with optimal medical therapy. I will perform an outpatient stress test on him, and if he has any ischemia in the LAD distribution, we may make another attempt at obtaining optimal use of the IMA. MMODL / IJN: [id number] /
[2020-04-05] MEDS ORDERED: ATORVASTATIN 10 MG TAB PO SCH (21:00)
[2020-04-05] MEDS: HYDROcodone/APAP 5-325MG 1 EACH TAB PO PRN (21:20)
[2020-04-05] MEDS: SODIUM CHLORIDE 0.9% 1,000 ML IV SCH (23:41)
[2020-04-06] MEDS: SODIUM CHLORIDE 0.9% 1,000 ML IV SCH (04:46)
--- NOTE | 2020-04-06 07:40 | P.PN ---
Progress Note - Text Progress Note Date: 04/06/20 Patient is seen and examined today at bedside. He says his ankles feeling well. He is still in his splint. He underwent his catheterization for his heart yesterday and feels good without any shortness of breath or chest pain. On exam he's afebrile stable vital signs His lower extremities has had a well-padded well molded short-leg splint intact. He is moving his toes well sensory is intact Refill less than 2 seconds. Compartments are soft. 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 He underwent his catheterization yesterday and will continue management today. He's continue management in terms of his chronic low back pain with pain control. He has started oral steroids at home which may have contributed to his altered feelings in his chest and lightheadedness. It is okay for him to wean down the steroid due to the side effects. He has a new right ankle fracture. We're attempting conservative treatment at this point. He is currently in a splint and would like to use the splint until he showers at which time he can remove the splint and shower without anything on and then put his boot on. I explained to him that he can go ahead and change into the boot and it is removable for showering as well. When he is in his splint or without the boot on he needs to remain nonweightbearing. He is okay to weight-bear with the tall cam walker boot intact. We will have physical therapy work with him for walker training. I've given her prescription for a walker for home use. From an orthopedic standpoint is okay for the patient to be discharged home when he stable from medical and cardiac standpoint. He will follow-up with us in approximately 1 week's time for recheck evaluation.
[2020-04-06] MEDS: CARVEDILOL 3.125 MG TAB PO SCH (07:44)
[2020-04-06] MEDS: HYDROcodone/APAP 5-325MG 1 EACH TAB PO PRN ×2 (07:44→12:54)
[2020-04-06 08:57] VITALS: BP 181/98; PULSE 88; TEMP 98.2
[2020-04-06] MEDS ORDERED: ASPIRIN 325 MG TAB PO SCH (09:00)
[2020-04-06] MEDS ORDERED: APIXABAN 2.5 MG TABLET PO SCH (09:00)
--- NOTE | 2020-04-06 10:07 | P.DS ---
Providers Date of admission: 04/04/20 22:14 Attending physician: Opal Cano MD Consults: 04/04/20 22:14 Consult Physician Urgent Consulting Provider: Mir Solano Consult Reason/Comments: Chest pain, syncopal episode Do you want consulting provider notified?: Yes 04/05/20 09:08 Consult Physician Routine Consulting Provider: Aaron Bowles Consult Reason/Comments: right ankle fx Do you want consulting provider notified?: Yes Primary care physician: Clifton Hayden [facility] Course: Chief Complaint: Chest pain, syncope This is an 85-year-old male patient of Dr. Blake with past medical history of hypertension, myocardial infarction, coronary artery disease status post CABG in 1983 with stent placement in 1999 and 2012, chronic atrial fibrillation not on anticoagulation. Patient states that he he has had ongoing problems with his lower back and was [facility] Dr[facility] and saw Dr. Bowles yesterday in the office. Patient was placed on prednisone tapering dose and took his first dose with milk yesterday afternoon. He states he was watching TV and about an hour later he got up to go into the kitchen and was feeling lightheaded, suddenly developed chest pain along with sweats and that is going to pass out. He grabbed the chair and the table and up falling to the floor with loss of consciousness with bladder incontinence. He states he got up with some difficulty and decided call EMS and he was brought into the hospital. Patient was afebrile, heart rate 81, blood pressure initially 143/85, pulse ox 97% on room air. WBC 6.3, hemoglobin 12.5, platelet count 145. Electrolytes within normal limits, BUN 17 creatinine 0.63, but sugar 196. Patient does not have history of diabetes. Troponin 0.030, 0.163, 0.85. Triglycerides 33, cholesterol 108, LDL 69, HDL 32. Tib-fib x-ray showed an acute nondisplaced distal fibula fracture. Echocardiogram revealed EF of 40-45% with mild concentric left ventricular hypertrophy, mild aortic regurgitation, mild aortic stenosis, mild to moderate mitral regurgitation, mild tricuspid regurgitation, mild pulmonary hypertension. Patient admitted to the cardiac stepdown unit and consult in place with orthopedics and cardiology. 04/06/2020: Patient underwent a cardiac catheterization yesterday and found to have [place] triple-vessel disease and unable to selectively mop possible RICKS occlusion. At this time is recommendation condition is optimal medical therapy. Patient was evaluated by orthopedics, recommendation is to continue to wear boot when boot is on in place to be nonweightbearing to the right lower extremity. Patient was given a walker with instructions. Patient lives alone and feels comfortable returning home with the support of his family. Patient was instructed he do minimal driving which he verbalized understanding. Discharge diagnosis: 1. Chest pain and syncopal episode secondary to non-ST elevated myocardial infarction. 2. Non-ST elevated myocardial infarction. 3. Hypertension. 4. History of coronary artery disease with previous CABG and stent placement done in 1999 and 2012. 5. Chronic atrial fibrillation, controlled rate. 6. Tobacco use and dependence. Patient smokes a pipe 7. COVID-19 infection not present. Disposition: Return home with self-care Impression and plan of care have been directed as dictated by the signing physician. Yeni King nurse practitioner acting as scribe for signing physician. Patient Condition at Discharge: Fair Plan - Discharge Summary Discharge Rx Participant: No New Discharge Prescriptions: New HYDROcodone/APAP 5-325MG [[place] 5-325] 1 each PO Q6HR PRN #9 tab PRN Reason: Pain Aspirin EC [Ecotrin Low Dose] 81 mg PO DAILY #30 tablet. Continue Multivit-Min/FA/Lycopen/Lutein [Centrum Silver Tablet] 1 tab PO DAILY Ibuprofen [Advil] 200 mg PO Q8HR PRN PRN Reason: Pain Ubidecarenone [Co Q-10] 100 mg PO BID predniSONE See Taper PO DAILY Lisinopril [Zestril] 2.5 mg PO DAILY Carvedilol [Coreg] 3.125 mg PO BID Baclofen [Lioresal] 5 mg PO BID PRN PRN Reason: Muscle Spasm Atorvastatin [Lipitor] 10 mg PO HS Nitroglycerin Sl Tabs [Nitrostat] 0.4 mg SL Q5M PRN PRN Reason: Chest Pain Discontinued Aspirin 325 mg PO DAILY Discharge Medication List Atorvastatin [Lipitor] 10 mg PO HS 04/04/20 [History] Baclofen [Lioresal] 5 mg PO BID PRN 04/04/20 [History] Carvedilol [Coreg] 3.125 mg PO BID 04/04/20 [History] Ibuprofen [Advil] 200 mg PO Q8HR PRN 04/04/20 [History] Lisinopril [Zestril] 2.5 mg PO DAILY 04/04/20 [History] Multivit-Min/FA/Lycopen/Lutein [Centrum Silver Tablet] 1 tab PO DAILY 04/04/20 [History] Nitroglycerin Sl Tabs [Nitrostat] 0.4 mg SL Q5M PRN 04/04/20 [History] Ubidecarenone [Co Q-10] 100 mg PO BID 04/04/20 [History] predniSONE See Taper PO DAILY 04/04/20 [History] Aspirin EC [Ecotrin Low Dose] 81 mg PO DAILY #30 tablet. 04/06/20 [Rx] HYDROcodone/APAP 5-325MG [[place] 5-325] 1 each PO Q6HR PRN #9 tab 04/06/20 [Rx] Follow up Appointment(s)/Referral(s): Clifton Blake MD [Primary Care Provider] - 1-2 days Mateo Palumbo MD [STAFF PHYSICIAN] - 1 Week Jw Pulliam MD [Medical Doctor] - 1 Week Activity/Diet/Wound Care/Special Instructions: With the tall cam boot intact at the right ankle, the patient may weight-bear to tolerance. He should use the boot at all times and while in bed. He may remove it only to shower. With the boot off, the patient needs to remain nonweightbearing. He is given a prescription for a walker for home use. Should try to keep his right ankle elevated. Discharge Disposition: HOME SELF-CARE
--- NOTE | 2020-04-06 13:10 | P.PN ---
Subjective Progress Note Date: 04/06/20 This is an 85-year-old male patient of Dr. Blake with past medical history of hypertension, myocardial infarction, coronary artery disease status post CABG in 1983 with stent placement in 1999 and 2012 presented to the hospital due to feeling lightheaded, suddenly developed chest pain along with sweats and felt like he was going to pass out. He grabbed the chair and the table and up falling to the floor with loss of consciousness with bladder incontinence. He states he got up with some difficulty and decided call EMS and he was brought into the hospital. Patient was afebrile, heart rate 81, blood pressure initially 143/85, pulse ox 97% on room air. WBC 6.3, hemoglobin 12.5, platelet count 145. Electrolytes within normal limits, BUN 17 creatinine 0.63, but sugar 196. Patient does not have history of diabetes. Troponin 0.030, 0.163, 0.85. Triglycerides 33, cholesterol 108, LDL 69, HDL 32. Tib-fib x-ray showed an acute nondisplaced distal fibula fracture. Echocardiogram revealed EF of 40-45% with mild concentric left ventricular hypertrophy, mild aortic regurgitation, mild aortic stenosis, mild to moderate mitral regurgitation, mild tricuspid regurgitation, mild pulmonary hypertension. Patient admitted to the cardiac stepdown unit and consult in place with orthopedics and cardiology. Patient underwent a cardiac catheterization yesterday with Dr. Corinne Solano and found to have [place] triple-vessel disease, occluded venous graft on the previous catheterization, occluded RICKS on previous catheterization, patent stent within the right coronary artery. Plan to treat with medical therapy, outpatient tress test and if ischemia in the LAD distribution, may make another attempt at obtaining RICKS catheterization. The patient denies having any chest pain or shortness of breath. He is anxious to be discharged home today. Patient is cleared by cardiology for discharge. Physical examination: Gen: This is an 85-year-old male. Patient is sitting on the edge of the bed and appears to be comfortable in no acute distress. HEENT: Head is atraumatic, normocephalic. Pupils equal, round. Sclerae is anicteric. NECK: Supple. No JVD. No lymphadenopathy. No thyromegaly. LUNGS: Clear to auscultation. No wheezes or rhonchi. No intercostal retractions. HEART: Irregularly irregular rate and rhythm. No murmur. ABDOMEN: Soft. Bowel sounds are present. No masses. No tenderness. EXTREMITIES: No pedal edema. No calf tenderness. OCL splint on the right lower leg. NEUROLOGICAL: Patient is awake, alert and oriented x3. Cranial nerves 2 through 12 are grossly intact. Assessment: Chest pain and syncopal episode secondary to non-ST elevated myocardial infar ction. Non-ST elevated myocardial infarction. Hypertension. History of coronary artery disease with previous CABG and stent placement done in 1999 and 2012. Chronic atrial fibrillation, controlled rate. Tobacco use and dependence. Patient smokes a pipe Atrial fibrillation ruled out Plan: Continue aspirin, atorvastatin, Lipitor Follow-up with cardiology in 1 week Patient is cleared for discharge home Nurse practitioner note has been reviewed, I agree with documented findings and plan of care. Patient was seen and examined. Objective - Vital Signs Vital signs: Vital Signs Temp 98.2 F 04/06/20 07:50 Pulse 88 04/06/20 07:50 Resp 18 04/06/20 07:50 BP 181/98 04/06/20 07:50 Pulse Ox 97 04/06/20 07:50 Intake & Output 04/05/20 04/06/20 04/06/20 18:59 06:59 18:59 Intake Total 300 90 Output Total 500 150 200 Balance -200 -150 -110 Weight 86.5 kg Intake: IV 100 Oral 200 90 Output: Urine 500 150 200 Other: Voiding Method Urinal Urinal # Voids 2 2 1 - Labs CBC & Chem 7: 04/04/20 20:52 04/04/20 20:52 Labs: Abnormal Lab Results - Last 24 Hours (Table) 04/05/20 04/05/20 Range/Units 03:21 09:11 Troponin I 0.185 H* (0.000-0.034) ng/mL Vitamin D 25-Hydroxy 24.8 L (30.0-100.0) ng/mL
== END 2020-04-06 13:35 | disposition home or self-care (01) | DRG 281 ==
LOC: EC 20:20 → 3SCARD 22:14
PROVIDERS: ADMIT Internal Medicine; ATTEND Internal Medicine
PROC: B2111ZZ Fluoroscopy of Multiple Coronary Arteries using Low Osmolar Contrast (ICD-10-PCS; principal; 2020-04-05 12:50)
PROC: 4A023N7 Measurement of Cardiac Sampling and Pressure, Left Heart, Percutaneous Approach (ICD-10-PCS; principal; 2020-04-05 12:50)
PROC: B2131ZZ Fluoroscopy of Multiple Coronary Artery Bypass Grafts using Low Osmolar Contrast (ICD-10-PCS; principal; 2020-04-05 12:50)
DX: I21.4 Non-ST elevation (NSTEMI) myocardial infarction (principal); I48.19 Other persistent atrial fibrillation; I25.10 Atherosclerotic heart disease of native coronary artery without angina pectoris; I27.20 Pulmonary hypertension, unspecified; I10 Essential (primary) hypertension; F17.290 Nicotine dependence, other tobacco product, uncomplicated; S82.61XA Displaced fracture of lateral malleolus of right fibula, initial encounter for closed fracture; G89.29 Other chronic pain; E78.5 Hyperlipidemia, unspecified; I08.3 Combined rheumatic disorders of mitral, aortic and tricuspid valves; R32 Unspecified urinary incontinence; W18.30XA Fall on same level, unspecified, initial encounter; Z60.2 Problems related to living alone; I45.10 Unspecified right bundle-branch block; Z11.59 Encounter for screening for other viral diseases; Z79.82 Long term (current) use of aspirin; Z88.2 Allergy status to sulfonamides; I25.2 Old myocardial infarction; Z95.5 Presence of coronary angioplasty implant and graft; Z95.1 Presence of aortocoronary bypass graft; Z79.899 Other long term (current) drug therapy
CPT/HCPCS: 29515; 36415; 71046; 80053; 80061; 82306; 83690; 83735; 83880; 84484; 85025; 85610; 85730; 87635; 93005; 93306; 93455; 99285

== ENCOUNTER 2020-07-12 09:33 | Inpatient (IN) | payer MEDICARE ==
[2020-07-12] MEDS ORDERED: SODIUM CHLORIDE 0.9% 500 ML 500 ML IV STA (09:53)
[2020-07-12] MEDS ORDERED: DILTIAZEM DRIP BOLUS FROM BAG 1 MG SOLN IV ONE (09:58)
[2020-07-12] MEDS: DILTIAZEM 125 MG in SODIUM CHLORIDE 0.9% 100 ML IV SCH (10:14)
[2020-07-12 10:18] LABS: Basophils % (A) 0 %; Eosinophils # (A) 0.1 k/uL (0-0.7); Eosinophils % (A) 1 %; HCT 43.9 % (39.0-53.0); HGB 14.2 gm/dL (13.0-17.5); Lymphocytes # (A) 0.9 k/uL (1.0-4.8); Lymphocytes % (A) 9 %; MCH 33.1 pg (25.0-35.0); MCHC 32.3 g/dL (31.0-37.0); MCV 102.2 fL (80.0-100.0); Macrocytosis Slight; Mean Platelet Volume 8.6; Monocytes # (A) 0.6 k/uL (0-1.0); Monocytes % (A) 6 %; Neutrophils # (A) 8.9 k/uL (1.3-7.7); Neutrophils % (A) 84 %; Platelet Count 145 k/uL (150-450); RBC 4.29 m/uL (4.30-5.90); RDW 12.8 % (11.5-15.5); WBC 10.6 k/uL (3.8-10.6)
[2020-07-12] MEDS ORDERED: ASPIRIN 81 MG PO STA (10:21)
--- NOTE | 2020-07-12 10:21 | ED ---
General Adult HPI - General Chief complaint: Chest Pain Stated complaint: chest pain Time Seen by Provider: 07/12/20 09:35 Source: patient, RN notes reviewed, old records reviewed Mode of arrival: ambulatory Limitations: no limitations - History of Present Illness Initial comments: This is an 85-year-old male who presents to the emergency department complaining of having chest pains which started last night about 7:00 when he was working on something and got frustrated. Patient states the pain is left-sided chest and made him sweat as well as that time. Patient states she woke up today and the pain was still there. Patient denies any radiation of pain however he does complain that there is some shortness of breath. Patient denies any nausea vomiting. Patient denies headache patient denies numbness weakness. Patient denies lightheadedness or dizziness. Patient denies abdominal pain patient denies nausea vomiting or diarrhea. Patient states he has a history of bypass surgery but no history of any atrial fibrillation or flutter and no history of any blood thinners. - Related Data Home Medications Medication Instructions Recorded Confirmed Atorvastatin [Lipitor] 10 mg PO HS 04/04/20 07/12/20 Ibuprofen [Advil] 200 mg PO Q8H PRN 04/04/20 07/12/20 Multivit-Min/FA/Lycopen/Lutein 1 tab PO DAILY 04/04/20 07/12/20 [Centrum Silver Tablet] Nitroglycerin Sl Tabs [Nitrostat] 0.4 mg SL Q5M PRN 04/04/20 07/12/20 Ubidecarenone [Co Q-10] 100 mg PO BID 04/04/20 07/12/20 carvediloL [Coreg] 3.125 mg PO BID 04/04/20 07/12/20 lisinopriL [Zestril] 2.5 mg PO DAILY 04/04/20 07/12/20 Isosorbide Mononitrate ER [Imdur] 30 mg PO DAILY 07/12/20 07/12/20 Previous Rx's Medication Instructions Recorded Aspirin EC [Ecotrin Low Dose] 81 mg PO DAILY #30 tablet. 04/06/20 Allergies Allergy/AdvReac Type Severity Reaction Status Date / Time amoxicillin AdvReac Rash/Hives Verified 07/12/20 11:22 Sulfa (Sulfonamide AdvReac Diarrhea Verified 07/12/20 11:22 Antibiotics) Review of Systems ROS Statement: Those systems with pertinent positive or pertinent negative responses have been documented in the HPI. ROS Other: All systems not noted in ROS Statement are negative. Past Medical History Past Medical History: Hypertension, Myocardial Infarction (SD) Last Myocardial Infarction Date:: unknown History of Any Multi-Drug Resistant Organisms: None Reported Past Surgical History: Coronary Bypass/CABG, Heart Catheterization With Stent Additional Past Surgical History / Comment(s): 1984 CABG Past Anesthesia/Blood Transfusion Reactions: No Reported Reaction Past Psychological History: No Psychological Hx Reported Smoking Status: Current every day smoker Past Alcohol Use History: Daily Past Drug Use History: None Reported - Past Family History Father Additional Family Medical History / Comment(s): Patient's parents are both de ceased and patient does not recall any other medical history. He also does not know medical history of any siblings. General Exam - General Exam Comments Initial Comments: GENERAL: Patient is well-developed and well-nourished. Patient is nontoxic and well- hydrated and is in mild distress. ENT: Neck is soft and supple. No significant lymphadenopathy is noted. Oropharynx is clear. Moist mucous membranes. Neck has full range of motion without eliciting any pain. EYES: The sclera were anicteric and conjunctiva were pink and moist. Extraocular movements were intact and pupils were equal round and reactive to light. Ey elids were unremarkable. PULMONARY: Unlabored respirations. Good breath sounds bilaterally. No audible rales rhonchi or wheezing was noted. CARDIOVASCULAR: Patient is tachycardic at 150 beats a minute.. ABDOMEN: Soft and nontender with normal bowel sounds. SKIN: Skin is clear with no lesions or rashes and otherwise unremarkable. NEUROLOGIC: Patient is alert and oriented x3. Cranial nerves II through XII are grossly intact. Motor and sensory are also intact. Normal speech, volume and content. Symmetrical smile. MUSCULOSKELETAL: Normal extremities with adequate strength and full range of motion. LYMPHATICS: No significant lymphadenopathy is noted PSYCHIATRIC: Normal psychiatric evaluation. Limitations: no limitations Course Vital Signs 07/12/20 07/12/20 09:36 11:38 Temperature 97.4 F L Pulse Rate 154 H 161 H Respiratory 18 Rate Blood Pressure 144/90 98/54 O2 Sat by Pulse 98 98 Oximetry Procedures - Procedures Initial comment: Patient needed to be cardioverted patient was cardioverted with 100 J of sy nchronized shock. Patient cardioverted to a rate of 60 beats a minute. Patient was awake and alert after the procedure hour prior to the procedure he was nonresponsive so no sedation was given. EKG after the procedure showed a wide complex QRS rhythm at 53 bpm there is a right bundle branch block and there was significant T-wave inversions in the precordial leads. Medical Decision Making - Medical Decision Making EKG shows a wide complex tachycardia at 156 bpm QRS is 172 QT interval 338 QTC is 544. Patient has a right bundle branch block. EKG does not show any obvious P waves however with a rate of 150 the patient may be due to a block of a flutter but is unable to be determined at this time. Started the patient Cardizem after Cardizem bolus. Started the patient on heparin after the troponin came back 7. He was still having some chest pain but much more mild than it was previously. I spoke with Dr. Graham he is going to come down and evaluate the patient. We switch the patient from Cardizem to amiodarone after we tried to use adenosine on him twice and was unsuccessful. I spoke with Dr. Davis he agreed to admit the patient admitted the patient wrote admitting orders. After patient was going to be admitted the ICU patient became unresponsive for about a minute blood pressure dropped into the 70s there was at this point time I called Dr. Graahm again and he wanted the patient cardioverted. I spoke with the patient he said he was in agreement with that even if it wasn't successful he would rather try that didn't stay in the discomfort that he is currently on. - Lab Data Result diagrams: 07/12/20 10:05 07/12/20 10:05 Lab Results 07/12/20 07/12/20 07/12/20 Range/Units 10:05 10:05 10:05 WBC 10.6 (3.8-10.6) k/uL RBC 4.29 L (4.30-5.90) m/uL Hgb 14.2 (13.0-17.5) gm/dL Hct 43.9 (39.0-53.0) % MCV 102.2 H (80.0-100.0) fL MCH 33.1 (25.0-35.0) pg MCHC 32.3 (31.0-37.0) g/dL RDW 12.8 (11.5-15.5) % Plt Count 145 L (150-450) k/uL Neutrophils % 84 % Lymphocytes % 9 % Monocytes % 6 % Eosinophils % 1 % Basophils % 0 % Neutrophils # 8.9 H (1.3-7.7) k/uL Lymphocytes # 0.9 L (1.0-4.8) k/uL Monocytes # 0.6 (0-1.0) k/uL Eosinophils # 0.1 (0-0.7) k/uL Basophils # 0.0 (0-0.2) k/uL Macrocytosis Slight PT 11.6 (9.0-12.0) sec INR 1.1 (<1.2) APTT 25.0 (22.0-30.0) sec Sodium 137 (137-145) mmol/L Potassium 5.6 H (3.5-5.1) mmol/L Chloride 104 (98-107) mmol/L Carbon Dioxide 21 L (22-30) mmol/L Anion Gap 12 mmol/L BUN 22 H (9-20) mg/dL Creatinine 0.71 (0.66-1.25) mg/dL Est GFR (CKD-EPI)AfAm >90 (>60 ml/min/1.73 sqM) Est GFR (CKD-EPI)NonAf 85 (>60 ml/min/1.73 sqM) Glucose 171 H (74-99) mg/dL Calcium 9.2 (8.4-10.2) mg/dL Magnesium 2.1 (1.6-2.3) mg/dL Total Bilirubin 0.9 (0.2-1.3) mg/dL AST 136 H (17-59) U/L ALT 43 (4-49) U/L Alkaline Phosphatase 75 (38-126) U/L Troponin I (0.000-0.034) ng/mL NT-Pro-B Natriuret Pep pg/mL Total Protein 6.7 (6.3-8.2) g/dL Albumin 4.3 (3.5-5.0) g/dL 07/12/20 07/12/20 Range/Units 10:05 10:05 WBC (3.8-10.6) k/uL RBC (4.30-5.90) m/uL Hgb (13.0-17.5) gm/dL Hct (39.0-53.0) % MCV (80.0-100.0) fL MCH (25.0-35.0) pg MCHC (31.0-37.0) g/dL RDW (11.5-15.5) % Plt Count (150-450) k/uL Neutrophils % % Lymphocytes % % Monocytes % % Eosinophils % % Basophils % % Neutrophils # (1.3-7.7) k/uL Lymphocytes # (1.0-4.8) k/uL Monocytes # (0-1.0) k/uL Eosinophils # (0-0.7) k/uL Basophils # (0-0.2) k/uL Macrocytosis PT (9.0-12.0) sec INR (<1.2) APTT (22.0-30.0) sec Sodium (137-145) mmol/L Potassium (3.5-5.1) mmol/L Chloride (98-107) mmol/L Carbon Dioxide (22-30) mmol/L Anion Gap mmol/L BUN (9-20) mg/dL Creatinine (0.66-1.25) mg/dL Est GFR (CKD-EPI)AfAm (>60 ml/min/1.73 sqM) Est GFR (CKD-EPI)NonAf (>60 ml/min/1.73 sqM) Glucose (74-99) mg/dL Calcium (8.4-10.2) mg/dL Magnesium (1.6-2.3) mg/dL Total Bilirubin (0.2-1.3) mg/dL AST (17-59) U/L ALT (4-49) U/L Alkaline Phosphatase (38-126) U/L Troponin I 7.150 H* (0.000-0.034) ng/mL NT-Pro-B Natriuret Pep 5460 pg/mL Total Protein (6.3-8.2) g/dL Albumin (3.5-5.0) g/dL Critical Care Time Critical Care Time: Yes Total Critical Care Time: 55 Disposition Clinical Impression: Acute non-ST elevation myocardial infarction (NSTEMI), Wide-complex tachycardia Disposition: ADMITTED IP TO THIS [facility] Time of Disposition: 11:17
[2020-07-12 10:30] LABS: ALT 43 U/L (4-49); African American GFR (CKD) >90 (>60 ml/min/1.73 sqM); Albumin 4.3 g/dL (3.5-5.0); Anion Gap 12 mmol/L; Blood Urea Nitrogen 22 mg/dL (9-20); Calcium 9.2 mg/dL (8.4-10.2); Carbon Dioxide 21 mmol/L (22-30); Chloride 104 mmol/L (98-107); Glucose 171 mg/dL (74-99); Non-African American GFR(CKD) 85 (>60 ml/min/1.73 sqM); Sodium 137 mmol/L (137-145); Total Bilirubin 0.9 mg/dL (0.2-1.3); Total Protein 6.7 g/dL (6.3-8.2)
[2020-07-12 10:37] LABS: INR 1.1 (<1.2); Prothrombin Time 11.6 sec (9.0-12.0)
--- NOTE | 2020-07-12 10:43 | XR ---
EXAMINATION TYPE: XR chest 2V DATE OF EXAM: 07/12/2020 COMPARISON: 04/04/2020 TECHNIQUE: PA and lateral views submitted. HISTORY: Chest pain FINDINGS: The lungs are clear and there is no pneumothorax, pleural effusion, or focal pneumonia. Heart is en larged and there is postoperative change. Biapical pleural thickening. Arthropathy of the shoulders. No overt failure. Surgical clip in the right upper quadrant. Large hiatal hernia. Degenerative change s of the spine. IMPRESSION: 1. No acute process. 2. Large hiatal hernia 3. Cardiomegaly
[2020-07-12 11:02] LABS: AST 136 U/L (17-59); Alkaline Phosphatase 75 U/L (38-126); Magnesium 2.1 mg/dL (1.6-2.3); Potassium 5.6 mmol/L (3.5-5.1)
[2020-07-12] MEDS ORDERED: HEPARIN SODIUM,PORCINE 5,000 UNIT/ML 1 ML VIAL IV ONE (11:07)
[2020-07-12] MEDS ORDERED: NITROGLYCERIN SL TABS 0.4 MG TAB SUBLINGUAL PRN ×2 (11:19→15:03)
[2020-07-12] MEDS ORDERED: ADENOSINE 3 MG/ML 2 ML VIAL IVP STA ×2 (11:27→11:32)
[2020-07-12] MEDS ORDERED: AMIODARONE 360 MG in DEXTROSE 5% IN WATER 200 ML IV ONE ×2 (11:41)
[2020-07-12] MEDS ORDERED: DEXTROSE 5% IN WATER 100 ML with AMIODARONE 150 MG IV ONE (11:41)
[2020-07-12] MEDS ORDERED: MIDAZOLAM 2 MG/2 ML VIAL IV STA (12:23)
[2020-07-12] MEDS: HEPARIN SOD,PORK IN 0.45% NACL 25,000 UNIT in 0.45% NACL 1 250ML.BAG IV SCH (13:10)
[2020-07-12] MEDS ORDERED: SODIUM CHLORIDE 0.9% 1,000 ML IV ONE ×3 (13:32→15:40)
[2020-07-12 14:25] LABS: Glucose,Whole Blood 212 mg/dL (75-99)
[2020-07-12] MEDS: NITROGLYCERIN OINT 1 INCH/GM PACKET TOPICAL SCH ×2 (14:26→17:25)
[2020-07-12] MEDS ORDERED: ALPRAZolam 0.5 MG TAB PO PRN (15:03)
[2020-07-12] MEDS ORDERED: ATORVASTATIN 80 MG TAB PO STA (15:03)
[2020-07-12] MEDS ORDERED: ALPRAZolam 0.25 MG TAB PO PRN (15:03)
[2020-07-12] MEDS ORDERED: SODIUM CHLORIDE 0.9% 1,000 ML in EMPTY BAG 1 BAG IV ONE (15:03)
[2020-07-12] MEDS ORDERED: ASPIRIN 325 MG TAB PO STA (15:03)
[2020-07-12] MEDS ORDERED: LIDOCAINE 1% INJ 10MG/ML (20 ML MDV) ONE (15:40)
[2020-07-12] MEDS ORDERED: VERAPAMIL 2.5 MG/ML 2 ML AMP ONE (15:40)
[2020-07-12] MEDS ORDERED: MIDAZOLAM 2 MG/2 ML VIAL IV ONE (15:47)
[2020-07-12] MEDS ORDERED: LIDOCAINE 1% INJ 10MG/ML (20 ML MDV) SQ ONE (15:50)
[2020-07-12] MEDS ORDERED: VERAPAMIL SYRINGE (5 MG/10 ML) INTRAARTER ONE ×2 (15:53→16:15)
[2020-07-12] MEDS ORDERED: HEPARIN SODIUM 1,000 UN/ML (10ML VL) ONE (16:00)
[2020-07-12] MEDS ORDERED: IOPAMIDOL-370 125ML BTL INJ ONE (16:16)
[2020-07-12] MEDS ORDERED: RX INFO: IV CONTRAST WAS GIVEN 1 EACH MISC MISCELLANE PRN (16:44)
--- NOTE | 2020-07-12 17:05 | P.CARDCATH ---
Date of Procedure: 07/12/20 Preoperative Diagnosis: Non-STEMI Postoperative Diagnosis: Same Procedure(s) Performed: Right coronary angiography and subselective ALEXANDREA to LAD angiography Anesthesia: local Disposition: ICU Indications for Procedure: Non-STEMI Description of Procedure: HISTORY: Patient is an 85-year-old male with history of coronary artery disease status post CABG in 1983, ALEXANDREA to LAD and all other grafts known to be occluded with severe left che[place] disease, 99% known left main stenosis. He additionally has a history of cardiomyopathy with ejection fraction 40-45%, hypertension, PCI in 1999 and 2012, atrial fibrillation, tobacco abuse. He had acute onset of chest pain over night and then presented to the emergency department with continued chest pain. This has been ongoing for approximately 12 hours. He was found to be in a wide complex tachycardia. There was suspicion of atrial flutter with 2:1 block and heart rate of 160 and therefore adenosine 6 mg and 12 mg was given without any improvement. Patient was given amiodarone and became somewhat hypotensive and obtunded and therefore decision was made to cardiovert him. Patient was cardioverted into sinus rhythm with sinus bradycardia in the 40s however still had persistent chest pain. Patient had bradycardia with EKG showing deep inverted T waves. He was found to have non-STEMI and therefore decision was made to take him to the [facility]. CONSENT:I have discussed the risks, benefits and alternative therapies for the above-mentioned procedure and for both sedation/analgesia as well as necessary blood product administration, if indicated, as they pertain to this patient. The patient has indicated understanding and acceptance of the risks and procedures discussed. PROCEDURE: After the above mentioned procedures were splenic B-cell with the patient, informed consent was obtained. Patient was brought to the catheterization lab and prepped and draped in usual fashion. 2% lidocaine was used to anesthetize the right radial artery. A 6-[place] sheath was then placed using Seldinger technique. There was some tortuosity of the brachial artery with some difficulty maneuvering catheters however right coronary angiography was performed with a 5-[place] FR5 catheter in various views. Subselective imaging of the ALEXANDREA was performed however again limited manipulation of the catheters. Patient's left system was known to be severely diseased and not amenable to intervention and all other grafts were noted to be occluded. Therefore the procedure was concluded. The sheath was removed and hemostasis was achieved with a TR band in place. Patient tolerated the procedure well. Conscious Sedation: Versed 0.5 mg Fentanyl none Duration 33 minutes HEMODYNAMICS: 95/55, heart rate 45 to 50s SELECTIVE CORONARY ARTERIOGRAPHY: RCA: The RCA is a large caliber vessel which has a ostial to proximal stent with 30% proximal in-stent stenosis area in Alfredo vessel was heavily calcified. There is diffuse mild 30-40% stenosis throughout the proximal and mid RCA. There is 40% proximal field the stenosis. The PDA gives septal perforators which give collaterals to the LAD. ALEXANDREA to LAD: Poor visualization secondary to tortuosity and angulation of the brachiocephalic artery. ALEXANDREA is widely patent proximally. FINAL IMPRESSION: 1. Patent RCA stents with diffuse mild to moderate disease of up to 40% of the RCA. 2. Appears to be patent ALEXANDREA to LAD proximally, poorly visualized secondary to angulation and tortuosity. 3. Known severe left sided disease with prior imaging showing 99% left main stenosis. PLAN: Patient's presentation was mainly of wide-complex tachycardia with a heart rate of 160 which has since improved. Suspect non-STEMI type II mechanism secondary to tachycardia with severe underlying CAD which appears similar to prior imaging. He is now chest pain-free and we will treat him medically. There are no significant blockages easily amenable to PCI. PROGNOSIS: []
--- NOTE | 2020-07-12 17:29 | P.CRDCN ---
History of Present Illness Consult date: 07/12/20 Reason for Consult (text): Non-STEMI History of present illness: HISTORY OF PRESENTING ILLNESS Patient is an 85-year-old male with history of coronary artery disease status post CABG in 1983, ALEXANDREA to LAD and all other grafts known to be occluded with severe left lyt[place] disease, 99% known left main stenosis. He additionally has a history of cardiomyopathy with ejection fraction 40-45%, hypertension, PCI in 1999 and 2012, atrial fibrillation, tobacco abuse. He had acute onset of chest pain over night and then presented to the emergency department with continued chest pain. This has been ongoing for approximately 12 hours. He was found to be in a wide complex tachycardia. There was suspicion of atrial flutter with 2:1 block and heart rate of 160 and therefore adenosine 6 mg and 12 mg was given without any improvement. Patient was given amiodarone and became somewhat hypotensive and obtunded and therefore decision was made to cardiovert him. Patient was cardioverted into sinus rhythm with sinus bradycardia in the 40s however still had persistent chest pain. Patient had bradycardia with EKG showing deep inverted T waves. He was found to have non-STEMI and therefore decision was made to take him to the [facility]. Heart catheterization showed mild to moderate diffuse disease of the RCA however obstructive disease in the RCA. The left system is known to be severely diseased and not amenable to PCI. We will appear patent. He was then noted to be chest pain-free after the heart catheterization. DIAGNOSTICS EKG reveals initial EKG at 944 showed a wide complex tachycardia with a rate of 156 with a right bundle branch block and left posterior fascicular block morphology diffuse nonspecific ST-T wave abnormalities. Appears to be flutter waves marching through the ST segments. Repeat EKG after cardioversion shows what appears to be an alternating atrial bigeminy with rates of 53 and right bundle branch morphology and diffuse T-wave inversions. Chest xray no acute process, large hiatal hernia and cardiomegaly. Laboratory reviewed, hemoglobin 14.2, platelets 145, white blood cell count 10.6, creatinine 0.71., Troponin 7.1, 10.4 Current cardiac medications include aspirin, amiodarone drip, heparin drip. REVIEW OF SYSTEMS At the time of my exam: CONSTITUTIONAL: Denies fever or chills. CARDIOVASCULAR: +chest pain, + mild shortness of breath, no orthopnea, PND or palpitations. RESPIRATORY: Denies cough. GASTROINTESTINAL: Denies abdominal pain, diarrhea, constipation, nausea or vomiting. MUSCULOSKELETAL: Denies myalgias. NEUROLOGIC: Denies numbness, tingling or weakness. ENDOCRINE: +fatigue, no weight change, polydipsia or polyurina. GENITOURINARY: Denies burning, hematuria or urgency with micturation. HEMATOLOGIC: Denies history of anemia or bleeding. PHYSICAL EXAMINATION Blood pressure 87/52 heart rate 46 afebrile and maintaining oxygen saturation on 6 L nasal cannula. CONSTITUTIONAL: No apparent distress, however mildly ill-appearing HEENT: Head is normocephalic. Pupils are equal, round. Sclerae anicteric. Mucous membranes of the mouth are moist. No JVD. No carotid bruit. CHEST EXAMINATION: Lungs are clear to auscultation. No chest wall tenderness is noted on palpation or with deep breathing. HEART EXAMINATION: Bradycardic and regular rhythm. S1, S2 heard. +2/6 systolic murmur, gallops or rub. ABDOMEN: Soft, nontender. Positive bowel sounds. EXTREMITIES: 1+ peripheral pulses, no lower extremity edema and no calf tenderness. NEUROLOGIC EXAMINATION: Patient is awake, alert and oriented x3. ASSESSMENT 1. Wide-complex tachycardia. Right bundle branch morphology and appears to have atrial flutter waves however did not respond to 6 and 12 mg of adenosine and emergency department. Status post cardioversion and emergency department for continued chest pain and hypotension. Currently sinus rhythm with atrial bigeminy. 2. Non-STEMI with troponin 7 and 10. Concern of type I mechanism secondary to persistent chest pain even after cardioversion and lower heart rates. Status post catheterization that showed unchanged right coronary artery and likely type II mechanism secondary to tachycardia with demand perfusion mismatch. 3. Coronary artery disease status post CABG with only remaining bypass graft RICKS to LAD. Known severe chronic left sided disease. Status post cath with patent RCA stent and patent ALEXANDREA. No need for further revascularization. 4. Bradycardia. Appears to be atrial bigeminy 5. Borderline hypotension, rule out cardiogenic source PLAN Patient was taken of the [facility] as he was having persistent chest pain with non-STEMI. The concern was possibly his main remaining vessel, RCA with stenosis however this appears patent. Would not pursue any further revascularization of the left system as this has been chronic. Suspect non- STEMI and chest pain related to demand perfusion mismatch secondary to tachycardia. Patient with wide-complex tachycardia with what appears to be atrial flutter waves hidden in the QRS. He did not respond to adenosine in the emergency department. We will attempt amiodarone as he did not tolerate this arrhythmia. We will give 400 mg amiodarone by mouth twice a day. Check 2-D echo. Patient now bradycardiac and may have component of tachybradycardia syndrome. Further recommendations to follow. Continue heparin drip. No beta blockers given bradycardia. Nitro drip if needed for chest pain and if the pressure tolerates. Past Medical History Past Medical History: Atrial Fibrillation, Coronary Artery Disease (CAD), Chest Pain / Angina, Hypertension, Myocardial Infarction ([place]), Syncope Additional Past Medical History / Comment(s): R ankle fracture with brace, chronic low back pain, psoriatic arthritis, nephrolithiasis with surgical removal of stone, Last Myocardial Infarction Date:: 04/04/20 History of Any Multi-Drug Resistant Organisms: None Reported Past Surgical History: Cholecystectomy, Coronary Bypass/CABG, Heart Catheterization With Stent, Hernia Repair Additional Past Surgical History / Comment(s): 1983 CABG 4 vessel, PCIs with stents, L inguinal hernia repair, colonoscopy, R neck injury with I&D, surgery to remove kidney stone Past Anesthesia/Blood Transfusion Reactions: No Reported Reaction Date of Last Stent Placement:: Smoking Status: Current every day smoker - Past Family History Father Family Medical History: Pneumonia Additional Family Medical History / Comment(s): Patient's parents are both and patient does not recall any other medical history. He also does not know medical history of any siblings. Mother Family Medical History: Coronary Artery Disease (CAD) Medications and Allergies Home Medications Medication Instructions Recorded Confirmed Type Atorvastatin [Lipitor] 10 mg PO HS 04/04/20 07/12/20 History Ibuprofen [Advil] 200 mg PO Q8H PRN 04/04/20 07/12/20 History Multivit-Min/FA/Lycopen/Lutein 1 tab PO DAILY 04/04/20 07/12/20 History [Centrum Silver Tablet] Nitroglycerin Sl Tabs [Nitrostat] 0.4 mg SL Q5M PRN 04/04/20 07/12/20 History Ubidecarenone [Co Q-10] 100 mg PO BID 04/04/20 07/12/20 History carvediloL [Coreg] 3.125 mg PO BID 04/04/20 07/12/20 History lisinopriL [Zestril] 2.5 mg PO DAILY 04/04/20 07/12/20 History Aspirin EC [Ecotrin Low Dose] 81 mg PO DAILY #30 tablet. 04/06/20 07/12/20 Rx Isosorbide Mononitrate ER [Imdur] 30 mg PO DAILY 07/12/20 07/12/20 History Allergies Allergy/AdvReac Type Severity Reaction Status Date / Time amoxicillin AdvReac Rash/Hives Verified 07/12/20 11:22 Sulfa (Sulfonamide AdvReac Diarrhea Verified 07/12/20 11:22 Antibiotics) Physical Exam Vitals: Vital Signs Temp Pulse Pulse Resp BP Pulse Ox 07/12/20 15:04 42 L 18 94 L 07/12/20 15:00 42 L 17 89/61 90 L 07/12/20 12:52 47 L 19 102/81 98 07/12/20 11:38 161 H 98/54 98 07/12/20 09:36 97.4 F L 154 H 18 144/90 98 Intake and Output 07/12/20 07/12/20 07/12/20 06:59 14:59 22:59 Intake Total 75 Output Total 0 Balance 75 Intake: IV 75 Output: Urine 0 Other: Weight 73.028 kg Results 07/12/20 10:05 07/12/20 10:05 Cardiac Enzymes 07/12/20 07/12/20 07/12/20 Range/Units 10:05 10:05 13:03 AST 136 H (17-59) U/L Troponin I 7.150 H* 10.400 H* (0.000-0.034) ng/mL Coagulation 07/12/20 Range/Units 10:05 PT 11.6 (9.0-12.0) sec APTT 25.0 (22.0-30.0) sec CBC 07/12/20 Range/Units 10:05 WBC 10.6 (3.8-10.6) k/uL RBC 4.29 L (4.30-5.90) m/uL Hgb 14.2 (13.0-17.5) gm/dL Hct 43.9 (39.0-53.0) % Plt Count 145 L (150-450) k/uL Comprehensive Metabolic Panel 07/12/20 Range/Units 10:05 Sodium 137 (137-145) mmol/L Potassium 5.6 H (3.5-5.1) mmol/L Chloride 104 (98-107) mmol/L Carbon Dioxide 21 L (22-30) mmol/L BUN 22 H (9-20) mg/dL Creatinine 0.71 (0.66-1.25) mg/dL Glucose 171 H (74-99) mg/dL Calcium 9.2 (8.4-10.2) mg/dL AST 136 H (17-59) U/L ALT 43 (4-49) U/L Alkaline Phosphatase 75 (38-126) U/L Total Protein 6.7 (6.3-8.2) g/dL Albumin 4.3 (3.5-5.0) g/dL Current Medications Generic Name Dose Route Start Last Admin Trade Name Freq PRN Reason Stop Dose Admin Alprazolam 0.25 mg 07/12/20 15:03 Xanax PO Q6HR PRN Mild Anxiety Alprazolam 0.5 mg 07/12/20 15:03 Xanax PO Q6HR PRN Moderate Anxiety Aspirin 325 mg 07/13/20 09:00 Aspirin PO DAILY VEENA Diltiazem HCl 125 mg/ Sodium 125 mls @ 5 mls/hr 07/12/20 10:00 07/12/20 10:14 Chloride IV 5 mg/hr .Q24H VEENA 5 mls/hr Administration 5 MG/HR Heparin Sodium/Sodium Chloride 250 mls @ 8.763 mls/hr 07/12/20 11:15 07/12/20 13:10 25,000 unit/ Sodium Chloride IV 12 units/kg/hr .Q24H VEENA 8.763 mls/hr Administration Protocol 12 UNITS/KG/HR Amiodarone HCl 360 mg/ 200 mls @ 33.333 mls/hr 07/12/20 11:41 07/12/20 11:59 Dextrose/Water IV 07/12/20 17:40 1 mg/min .Q6H ONE 33.333 mls/hr Administration Protocol 1 MG/MIN Sodium Chloride 1,000 ml/ IV 1,000 mls @ 73.028 mls/hr 07/12/20 15:03 Solution IV 07/13/20 04:44 .[id number] ONE 1 ML/KG/HR Miscellaneous Information 1 each 07/12/20 16:44 Rx Info: Iv Contrast Was Given MISCELLANE 07/14/20 16:44 DAILY PRN Per Protocol Nitroglycerin 1 inch 07/12/20 12:00 07/12/20 14:26 Nitro-Bid Oint TOPICAL Not Given Q6HR VEENA Nitroglycerin 0.4 mg 07/12/20 15:03 Nitrostat SUBLINGUAL Q5M PRN Chest Pain Intake and Output 07/12/20 07/12/20 07/12/20 06:59 14:59 22:59 Intake Total 75 Output Total 0 Balance 75 Intake: IV 75 Output: Urine 0 Other: Weight 73.028 kg Patient Weight 07/13/20 06:59 Weight 73.028 kg 07/12/20 10:05 07/12/20 10:05
--- NOTE | 2020-07-12 22:15 | P.HPIM ---
History of Present Illness H&P Date: 07/12/20 Chief Complaint: Acute non-ST SC, wide QRS tachycardia and arrhythmia, nonsu stained A. fib, 85-year-old male one of my office patient with multiple medical problem was known to have history of advance cardiovascular disease who had CABG in also had an angioplasty in 1999 and 2012 developed to have atrophy fibrillation with rapid ventricular spine patient was hospitalized last few weeks ago for ROM severe A. fib with RVR was treated done well. Patient apparently was working in a motorcycle in his shop yesterday when he developed to have slight frustration developed to have midsternal chest pain along with worsening shortness of breath lasted through the night he continued to have significant shortness of breath with minimum exertion. Patient ended up calling the office early childhood assistant and was to come to the office to be seen was instructed to come to the emergency department where was seen and evaluated patient had wide QRS complex tachycardia with pulse rate running 160 beats per minutes. Ended up getting adenosine then Cardizem then amiodarone were patient developed to have significant hypertension afterward patient ended up being cardioverted to bring his pulse rate down to 40 and 50 become more stable. Patient ended up going to the construction laborer by Dr. Graham finding patent RCA stent with diffuse mild to moderate disease of up to 40% of the RCA, appears to be patent ALEXANDREA to LAD proximally with poorly visualized secondary to ambulation and tortuosity, also severe left-sided disease with a pre-area measured 99% blockage of the left main stenosis. No angioplasty was done patient chest pain has improved after his heart cath. Was kept on heparin drip and admitted to the ICU afterward. Patient is more hemodynamically stable with the pulse rate slower. Review of Systems CONSTITUTIONAL: Well-developed no acute respiratory distress. EYES: No icterus sclerae, no conjunctivitis. EARS, NOSE, MOUTH, THROAT, and FACE: No sore throat, lymphadenopathy, carotid bruits or deformity. RESPIRATORY: Significant shortness of breath no cough wheezes. CARDIOVASCULAR: Positive PND orthopnea palpitations and angina with severe tachycardia. GASTROINTESTINAL: No Abd pain, Nausea or vomiting, no Diarrhea or constipation, No GI Bleed, no distention or masses. GENITOURINARY: Negative for Hematuria or UTI, no kidney stones. INTEGUMENT/BREAST: Negative for any muscular injury with mild osteoarthritis.. HEMATOLOGIC/LYMPHATIC: Negative for bleed or purpura. MUSCULOSKELTAL: Negative for Myalgia or arthralgia. NEURLOGICAL: No LOC, Sz or syncope, blurred vision dizziness or abnormality.. BEHAVIORAL/PSYCH: Negative. ENDOCRINE: Negative. Past Medical History Past Medical History: Atrial Fibrillation, Coronary Artery Disease (CAD), Chest Pain / Angina, Hypertension, Myocardial Infarction (SC), Syncope Additional Past Medical History / Comment(s): R ankle fracture with brace, chronic low back pain, psoriatic arthritis, nephrolithiasis with surgical removal of stone, Last Myocardial Infarction Date:: 04/04/20 History of Any Multi-Drug Resistant Organisms: None Reported Past Surgical History: Cholecystectomy, Coronary Bypass/CABG, Heart Catheterization With Stent, Hernia Repair Additional Past Surgical History / Comment(s): 1983 CABG 4 vessel, PCIs with stents, L inguinal hernia repair, colonoscopy, R neck injury with I&D, surgery to remove kidney stone Past Anesthesia/Blood Transfusion Reactions: No Reported Reaction Date of Last Stent Placement:: Smoking Status: Current every day smoker - Past Family History Father Family Medical History: Pneumonia Additional Family Medical History / Comment(s): Patient's parents are both and patient does not recall any other medical history. He also does not know medical history of any siblings. Mother Family Medical History: Coronary Artery Disease (CAD) Medications and Allergies Home Medications Medication Instructions Recorded Confirmed Type Atorvastatin [Lipitor] 10 mg PO HS 04/04/20 07/12/20 History Ibuprofen [Advil] 200 mg PO Q8H PRN 04/04/20 07/12/20 History Multivit-Min/FA/Lycopen/Lutein 1 tab PO DAILY 04/04/20 07/12/20 History [Centrum Silver Tablet] Nitroglycerin Sl Tabs [Nitrostat] 0.4 mg SL Q5M PRN 04/04/20 07/12/20 History Ubidecarenone [Co Q-10] 100 mg PO BID 04/04/20 07/12/20 History carvediloL [Coreg] 3.125 mg PO BID 04/04/20 07/12/20 History lisinopriL [Zestril] 2.5 mg PO DAILY 04/04/20 07/12/20 History Aspirin EC [Ecotrin Low Dose] 81 mg PO DAILY #30 tablet. 04/06/20 07/12/20 Rx Isosorbide Mononitrate ER [Imdur] 30 mg PO DAILY 07/12/20 07/12/20 History Allergies Allergy/AdvReac Type Severity Reaction Status Date / Time amoxicillin AdvReac Rash/Hives Verified 07/12/20 11:22 Sulfa (Sulfonamide AdvReac Diarrhea Verified 07/12/20 11:22 Antibiotics) Physical Exam Vitals: Vital Signs Temp Pulse Pulse Resp BP Pulse Ox 07/12/20 17:00 46 L 17 87/52 07/12/20 15:04 42 L 18 94 L 07/12/20 15:00 42 L 17 89/61 90 L 07/12/20 12:52 47 L 19 102/81 98 07/12/20 11:38 161 H 98/54 98 07/12/20 09:36 97.4 F L 154 H 18 144/90 98 Intake and Output 07/12/20 07/12/20 07/12/20 06:59 14:59 22:59 Intake Total 150 Output Total 0 Balance 150 Intake: IV 150 0.9 @ 75 75 Output: Urine 0 Other: Voiding Method Urinal Weight 73.028 kg General Appearance: Alert, cooperative, no distress, appears stated age. Neck HEENT: Supple, no lymphadenopathy, no thyroid enlargement, no carotid bruits. Lungs: Decreased + bilaterally at fine rhonchi mild crackles in the basis no expiratory wheezes. Chest Wall: Decrease expansion with deep inspiration no tenderness and no deformity was found on exam, no costochondral pain or discomfort. Heart: Irregular rate and rhythm, S1, S2 normal, positive S3 +5 cm JVD with PVCs and systolic murmur. Back: Symmetric, no curvature, ROM normal, no CVA tenderness. Abdomen: Soft, non-tender, bowel sounds active all four quadrants, no masses, no organomegaly. Extremities: No edema significant decreased pulses dorsalis pedis with mild arthritis in both knees. Pulses: Decreased bilaterally. Skin: Skin color, texture, tugor normal, no rashes or lesions. Neurologic: Alert oriented x3 cranial nerves II through XII intact, no motor d eficit, no abnormal balance or gait. Results CBC & Chem 7: 07/12/20 10:05 07/12/20 10:05 Labs: Abnormal Lab Results - Last 24 Hours (Table) 07/12/20 07/12/2007/12/20 Range/Units 10:05 10:05 10:05 RBC 4.29 L (4.30-5.90) m/uL MCV 102.2 H (80.0-100.0) fL Plt Count 145 L (150-450) k/uL Neutrophils # 8.9 H (1.3-7.7) k/uL Lymphocytes # 0.9 L (1.0-4.8) k/uL Potassium 5.6 H (3.5-5.1) mmol/L Carbon Dioxide 21 L (22-30) mmol/L BUN 22 H (9-20) mg/dL Glucose 171 H (74-99) mg/dL POC Glucose (mg/dL) (75-99) mg/dL AST 136 H (17-59) U/L Troponin I 7.150 H* (0.000-0.034) ng/mL 07/12/20 07/12/20 07/12/20 Range/Units 13:03 14:23 16:44 RBC (4.30-5.90) m/uL MCV (80.0-100.0) fL Plt Count (150-450) k/uL Neutrophils # (1.3-7.7) k/uL Lymphocytes # (1.0-4.8) k/uL Potassium (3.5-5.1) mmol/L Carbon Dioxide (22-30) mmol/L BUN (9-20) mg/dL Glucose (74-99) mg/dL POC Glucose (mg/dL) 212 H (75-99) mg/dL AST (17-59) U/L Troponin I 10.400 H* 38.800 H* (0.000-0.034) ng/mL Thrombosis Risk Factor Assmnt - DVT/VTE Prophylaxis DVT/VTE Prophylaxis: Pharmacologic Prophylaxis ordered, Mechanical Prophylaxis ordered - Choose All That Apply Any of the Below Risk Factors Present?: Yes Each Factor Represents 1 point: Acute SC, Medical pt on bed rest Other Risk Factors: Yes Each Risk Factor Represents 2 Points: Patient confined to bed Each Risk Factor Represents 3 Points: Age 75 years or older Other congenital or acquired thrombophilia - If yes, enter type in comment: No Thrombosis Risk Factor Assessment Total Risk Factor Score: 7 Thrombosis Risk Factor Assessment Level: High Risk Assessment and Plan Assessment: 1 wide complex tachycardia most likely ventricular arrhythmia: Patient was converted by cardioversion, after failure to respond to adenosine, Cardizem and amiodarone. Patient become slightly bradycardic at this point. He still have transcutaneous pacer continue to watch patient carefully in the next day or 2. 2 non-ST elevated myocardial infarction: With significant elevated troponin, patient was seen cardiology was taken to the construction laborer advance cardiovascular disease not able to do any angioplasty or stent placement this point his symptoms become better so far continue medical management watch his troponin next 24 hours. 3 significant coronary disease post CABG in 83 with multiple angioplasty with severe stenosis of the LAD along with the RCA patient is on medical management could not do angioplasty or stent. Ex 4 A. fib with RVR: Patient will be continue on beta monroe and he'll be on anticoagulation as well. 5 ischemic cardiopathy: With ejection fraction very low become lower than before echocardiogram was order will continue medical management patient might benefit from adding spironolactone or Entresto at this point. 6 hyperlipidemia: Continue patient on atorvastatin 10 mg daily. 7 hypertension: Was on lisinopril and Coreg. 8 hyperglycemia: Continue patient on Accu-Chek with sliding scales coverage. 10 hyperkalemia: Hydration repeat chemistry in the next 24 hours. 11 GI prophylaxis: Patient will be on Pepcid 20 mg daily. 12 DVT prophylaxis: Remain on heparin drip. CODE STATUS: Full code. Medical decision: Patient have extremely high comorbidity and very high mortal ity in the next few month might benefit from AICD decision will be made by cardiology and not a clear whether patient will accept to go for a ICD are not at this point. Admit patient to inpatient status for more than 2 night stay.
[2020-07-13] MEDS: NITROGLYCERIN OINT 1 INCH/GM PACKET TOPICAL SCH ×3 (03:12→12:29)
[2020-07-13 05:21] LABS: Basophils % (A) 0 %; Eosinophils % (A) 0 %; HCT 41.9 % (39.0-53.0); HGB 13.4 gm/dL (13.0-17.5); Lymphocytes # (A) 1.1 k/uL (1.0-4.8); Lymphocytes % (A) 10 %; MCH 33.2 pg (25.0-35.0); MCHC 32.1 g/dL (31.0-37.0); MCV 103.7 fL (80.0-100.0); Macrocytosis Slight; Monocytes # (A) 0.9 k/uL (0-1.0); Monocytes % (A) 8 %; Neutrophils # (A) 8.6 k/uL (1.3-7.7); Neutrophils % (A) 80 %; Platelet Count 114 k/uL (150-450); RBC 4.04 m/uL (4.30-5.90); RDW 12.9 % (11.5-15.5); WBC 10.8 k/uL (3.8-10.6)
[2020-07-13 05:50] LABS: ALT 231 U/L (4-49); AST 475 U/L (17-59); African American GFR (CKD) >90 (>60 ml/min/1.73 sqM); Albumin 3.9 g/dL (3.5-5.0); Alkaline Phosphatase 86 U/L (38-126); Anion Gap 8 mmol/L; Blood Urea Nitrogen 26 mg/dL (9-20); Calcium 8.7 mg/dL (8.4-10.2); Carbon Dioxide 21 mmol/L (22-30); Chloride 108 mmol/L (98-107); Cholesterol 96 mg/dL (<200); Glucose 108 mg/dL (74-99); HDL Cholesterol 33 mg/dL (40-60); LDL Cholesterol,Calculated 47 mg/dL (0-99); Non-African American GFR(CKD) 83 (>60 ml/min/1.73 sqM); Potassium 5.4 mmol/L (3.5-5.1); Sodium 137 mmol/L (137-145); Total Bilirubin 0.8 mg/dL (0.2-1.3); Total Protein 6.1 g/dL (6.3-8.2); Triglycerides 80 mg/dL (<150)
[2020-07-13] MEDS ORDERED: FAMOTIDINE 20 MG TAB PO SCH (09:00)
[2020-07-13] MEDS ORDERED: ASPIRIN 325 MG TAB PO SCH (09:00)
--- NOTE | 2020-07-13 09:57 | P.PN ---
Subjective Progress Note Date: 07/13/20 Principal diagnosis: Chest pain Patient to to be hemodynamically stable overnight no major events reported by nursing staff patient is alert and oriented 4 in no acute distress denying chest pain shortness breath nausea vomiting dumping dizziness lightheaded and syrup blurry vision Objective - Vital Signs Vital signs: Vital Signs Temp 97.8 F 07/13/20 04:00 Pulse 93 07/13/20 07:00 Resp 24 07/13/20 07:00 BP 111/78 07/13/20 07:00 Pulse Ox 96 07/13/20 07:00 Intake & Output 07/12/20 07/13/20 07/13/20 18:59 06:59 18:59 Intake Total 225 1150 Output Total 0 280 Balance 225 870 Weight 73.028 kg 88.9 kg Intake: IV 225 975 0.9 @ 75 150 975 Oral 50 Blood Product 125 Output: Urine 0 280 Other: Voiding Method Urinal Toilet Urinal # Voids 1 - Exam Gen.: in stated age, no acute distress Heart: Normal S1-S2 Lungs: Clear to auscultation bilaterally Abdomen: Soft, no tenderness, positive bowel sounds in all 4 quadrant no guarding or rebound Skin: No new rash Psych: Alert and oriented 3 Neuro: No focal deficit - Labs CBC & Chem 7: 07/13/20 04:31 07/13/20 04:31 Labs: Abnormal Lab Results - Last 24 Hours (Table) 07/12/20 07/12/20 07/12/20 Range/Units 10:05 10:05 10:05 WBC (3.8-10.6) k/uL RBC 4.29 L (4.30-5.90) m/uL MCV 102.2 H (80.0-100.0) fL Plt Count 145 L (150-450) k/uL Neutrophils # 8.9 H (1.3-7.7) k/uL Lymphocytes # 0.9 L (1.0-4.8) k/uL Potassium 5.6 H (3.5-5.1) mmol/L Chloride (98-107) mmol/L Carbon Dioxide 21 L (22-30) mmol/L BUN 22 H (9-20) mg/dL Glucose 171 H (74-99) mg/dL POC Glucose (mg/dL) (75-99) mg/dL AST 136 H (17-59) U/L ALT (4-49) U/L Troponin I 7.150 H* (0.000-0.034) ng/mL Total Protein (6.3-8.2) g/dL HDL Cholesterol (40-60) mg/dL 07/12/20 07/12/20 07/12/20 Range/Units 13:03 14:23 16:44 WBC (3.8-10.6) k/uL RBC (4.30-5.90) m/uL MCV (80.0-100.0) fL Plt Count (150-450) k/uL Neutrophils # (1.3-7.7) k/uL Lymphocytes # (1.0-4.8) k/uL Potassium (3.5-5.1) mmol/L Chloride (98-107) mmol/L Carbon Dioxide (22-30) mmol/L BUN (9-20) mg/dL Glucose (74-99) mg/dL POC Glucose (mg/dL) 212 H (75-99) mg/dL AST (17-59) U/L ALT (4-49) U/L Troponin I 10.400 H* 38.800 H* (0.000-0.034) ng/mL Total Protein (6.3-8.2) g/dL HDL Cholesterol (40-60) mg/dL 07/13/20 07/13/20 Range/Units 04:31 04:31 WBC 10.8 H (3.8-10.6) k/uL RBC 4.04 L (4.30-5.90) m/uL MCV 103.7 H (80.0-100.0) fL Plt Count 114 L (150-450) k/uL Neutrophils # 8.6 H (1.3-7.7) k/uL Lymphocytes # (1.0-4.8) k/uL Potassium 5.4 H (3.5-5.1) mmol/L Chloride 108 H (98-107) mmol/L Carbon Dioxide 21 L (22-30) mmol/L BUN 26 H (9-20) mg/dL Glucose 108 H (74-99) mg/dL POC Glucose (mg/dL) (75-99) mg/dL AST 475 H (17-59) U/L ALT 231 H (4-49) U/L Troponin I (0.000-0.034) ng/mL Total Protein 6.1 L (6.3-8.2) g/dL HDL Cholesterol 33 L (40-60) mg/dL Assessment and Plan Plan: 1. Non-ST elevation ID. Cardiac catheterization showed stable anatomy with profound coronary artery disease and multiple lesions but patient deemed to be not candidate for any intervention and recommendation from cardiology was to continue aggressive medical management and optimizing risk factors. We will continue cardioprotective medication and monitor hemodynamics closely consider transferring to stepdown unit with telemetry after evaluation by cardiology. 2. Elevated liver enzymes. Patient denied drinking alcohol denied any history of liver disease and stated that his gallbladder was taken out long time ago. I would like to obtain ultrasound of the abdomen follow-up on liver enzymes in the morning and consider GI consult based on clinical progress. Plan discussed with nursing staff at the bedside. 3. Coronary artery disease. Management as above. 4. Hypokalemia. We will continue monitoring avoid nephrotoxic medication. 5. Obesity. Discharge planning based on clinical progress
--- NOTE | 2020-07-13 11:21 | US ---
EXAMINATION TYPE: US abdomen limited DATE OF EXAM: 07/13/2020 COMPARISON: NONE CLINICAL HISTORY: Increased AST/ALT, check liver/gallbladder.. abn labs, no symptoms, cholecystectomy EXAM MEASUREMENTS: Liver Length: 15.5 cm Gallbladder Wall: Surgically absent CBD: 0.8cm Right Kidney: 10.7 x 5.0 x 5.2cm Pancreas: not seen due to bowel gas Liver: lobular contour with trace amount of free fluid noted at dome of liver Gallbladder: Surgically absent Evidence for sonographic Rivas's sign: no CBD: normal for age and post cholecystectomy Right Kidney: wnl IMPRESSION: Postoperative changes of cholecystectomy. Small amount of ascites.
[2020-07-13] MEDS: DILTIAZEM 125 MG in SODIUM CHLORIDE 0.9% 100 ML IV SCH (12:24)
[2020-07-13] MEDS: HEPARIN SOD,PORK IN 0.45% NACL 25,000 UNIT in 0.45% NACL 1 250ML.BAG IV SCH (12:24)
[2020-07-13] MEDS ORDERED: MIDAZOLAM 2 MG/2 ML VIAL ONE (13:11)
[2020-07-13] MEDS ORDERED: MIDAZOLAM 2 MG/2 ML VIAL IV STA (13:16)
[2020-07-13] MEDS ORDERED: DEXTROSE 5% IN WATER 100 ML BAG IV ONE (13:20)
[2020-07-13] MEDS ORDERED: EPINEPHrine 10 ML SYRINGE (0.1 MG/ML) ONE ×2 (13:20→14:08)
[2020-07-13] MEDS ORDERED: CALCIUM CHLORIDE 100 MG/ML 10 ML SYRINGE ONE (13:20)
[2020-07-13] MEDS ORDERED: SODIUM BICARB 8.4% 50 ML SYR (1 MEQ/ML) ONE ×2 (13:20→14:01)
[2020-07-13] MEDS ORDERED: AMIODARONE 50 MG/ML 3 ML VIAL IV ONE (13:20)
[2020-07-13] MEDS ORDERED: ETOMIDATE 2 MG/ML 10 ML VIAL ONE (13:31)
[2020-07-13] MEDS ORDERED: ROCURONIUM BROMIDE 10 MG/ML 5 ML VIAL IV ONE (13:31)
--- NOTE | 2020-07-13 14:08 | P.PN ---
Progress Note - Text Progress Note Date: 07/13/20 CODE BLUE note CODE SUSAN was called at 1:17 PM. Patient apparently went bradycardic and had th ird-degree heart block. Transcutaneous pacing was attempted. Patient went into PEA. High-quality chest compressions were started. Patient was given 1 g calcium chloride, epinephrine and bicarbonate. Return of spontaneous circulation was achieved. Patient went into PEA once again at 1:37 PM and chest compressions was started again. Epinephrine was given. Patient had wide complex tachycardia showing on the monitor thought to be V. tach and was cardioverted at 100 and 300 J. 150 mg of amiodarone bolus was given. ROSC was achieved. [employer] Operations Crew Member home energy consultant supervisor and Instrumentation And Controls Technician was at bedside at this time. Please refer to CODE BLUE sheet for complete details. These series of events took approximately 45 minutes.
[2020-07-13] MEDS ORDERED: EPINEPHrine 4 MG in DEXTROSE 5% IN WATER 250 ML IV SCH ×2 (14:15)
[2020-07-13] MEDS ORDERED: DOPamine DRIP 800 MG in WATER FOR INJECTION 1 250ML.BAG IV SCH (14:15)
[2020-07-13] MEDS ORDERED: CLEVIDIPINE BUTYRATE 25 MG/50 ML VIAL IV ONE (14:33)
[2020-07-13] MEDS ORDERED: MORPHINE SULFATE 4 MG/ML SYRINGE IV PRN (14:42)
[2020-07-13 15:55] VITALS: BP 227/153; PULSE 0; RESP 13; TEMP 98
--- NOTE | 2020-07-13 16:01 | CONS ---
CONSULTATION PULMONARY/CRITICAL CARE CONSULTATION: DATE OF SERVICE: July 13, 2020. REASON FOR CONSULTATION: Chest pain/ICU management. HISTORY OF PRESENT ILLNESS: 85-year-old male who apparently presented to the emergency department with complaints of having chest pain. It started previous to his admission to the emergency room. Anyway, the patient was apparently working on something, got frustrated and then developed left-sided chest pressure. At that time, he was also complaining of diaphoresis. Anyway, the patient denied any radiation of the pain. He also admitted to some mild shortness of breath. No nausea vomiting. He denied any headache and as well as numbness or weakness. Anyway, the patient was brought into the emergency room. There he was found to be in atrial flutter. Initially, the semiconductor processing group leader gave him some adenosine. Subsequent to that, he was started on Cardizem and amiodarone. He apparently did not convert with any of that. The patient was then cardioverted by the ER physician. The patient at that point went into sinus rhythm. Actually, he had sinus bradycardia at that point. The patient does have a history of bypass grafting for coronary artery disease. Currently, the patient is resting comfortably. He is on room air. Saturations 93%. He is getting saline at 75 mL an hour. He was admitted yesterday with a diagnosis of increasing heart rate which was atrial fibrillation with RVR, and a non ST-segment elevation myocardial infarction. He went to the catheterization laboratory yesterday. There was no new coronary disease. All disease seen was old disease which had not progressed. His primary care doctor is Dr. Blake. He sees Dr. Solano in Cardiology. CURRENT MEDICATIONS: Include Lipitor, Advil, Centrum Silver, vitamins, nitroglycerin, coenzyme-Q, Coreg, Zestril, Imdur, and baby aspirin. ALLERGIES: AMOXICILLIN and SULFA ANTIBIOTICS. MEDICAL HISTORY: Primarily hypertension, CAD, previous myocardial infarction. The patient also has a history of hyperlipidemia and angina. SURGICAL HISTORY: Includes heart catheterization with stent as well as bypass grafting. Bypass grafting took place in 1983. SOCIAL HISTORY: Positive for ongoing tobacco use with nicotine addiction. He does drink alcohol occasionally. No illicit drug use. FAMILY HISTORY: Positive for both mother and father being . He does not recall his mother or his father's health history. REVIEW OF SYSTEMS: CONSTITUTIONAL negative. NEUROLOGIC negative. HEENT negative. CARDIOVASCULAR: Chest pain. PULMONARY: Mild shortness of breath. GI negative. negative. RHEUMATOLOGIC: Negative. IMMUNOLOGIC negative. ENDOCRINOLOGIC negative. DERMATOLOGIC negative. PHYSICAL EXAMINATION: VITAL SIGNS: Current vital signs are reviewed. Temperature is 97.8, heart rate 93, respiratory rate 24. Blood pressure 111/78, mean 89. 5 L saturation 96%. 2 L saturation 96%. GENERAL: Appears in no acute distress. He is not complaining of any pain or shortness of breath at this time. HEENT: Examination is grossly unremarkable. NECK: Supple. Full range of motion. No adenopathy or thyromegaly. Neck veins are flat. CARDIOVASCULAR: Examination reveals regular rhythm and rate. S1, S2 normal. No S3, S4, or murmur. Heart rate about 93 beats per minute. LUNGS: Reveal clear breath sounds. No wheezes, rhonchi, or crackles. ABDOMEN: Soft. Bowel sounds are heard. EXTREMITIES are intact. No cyanosis, clubbing, or edema. SKIN: Without rash. NEUROLOGIC: Examination is brief but nonfocal. LABORATORY DATA: White count 10.8, hemoglobin 13.4, hematocrit 41.9, platelet count 114,000. Sodium 137, potassium 5.4, chloride 108. CO2 21. Anion gap is 8. BUN and creatinine were 26 and 0.75. PT/INR PTT all normal. His AST was 475, ALT 231. Troponins were 7.150, 10.4, 38.8. Total protein 6.1. N-terminal proBNP 5460. Total cholesterol was 96. Microbiology is pending or negative. Chest x-ray showed no acute process, cardiomegaly and a large hiatal hernia. EKG showed wide-complex tachycardia with a right bundle branch block pattern. Abdominal ultrasound shows postoperative changes of cholecystectomy and a small amount of ascites. Current medications are reviewed. He is currently on Xanax, aspirin. Pepcid, and sublingual nitroglycerin. ASSESSMENT: 1. Non ST-segment elevation myocardial infarction. 2. Atrial fibrillation/flutter. 3. Hyperlipidemia. 4. Hypertension. 5. Coronary artery disease with previous bypass grafting. 6. Prior history of myocardial infarction. 7. History of previous catheterization with stent. 8. Prior history of tobacco use. PLAN: Currently, the patient is doing well. No additional recommendations are made. From my perspective, the patient could be discharged out of the unit to the cardiac floor. We will await Cardiology input. The patient is stable hemodynamically. Not complaining of any shortness of breath. No additional chest pain. He does know the results of catheterization which was done yesterday. It showed no new disease. No additional recommendations are made. Prognosis is guarded. MMODL / IJN: [id number] /
--- NOTE | 2020-07-13 16:40 | PCN ---
PROCEDURE NOTE PULMONARY/CRITICAL CARE PROCEDURE NOTE: OPERATORS: Dr. Hansen and Dr. Jett. PROCEDURE PERFORMED: Left internal jugular triple-lumen catheter. REASON FOR PROCEDURE: Administration of fluids and pressors. TRIPLE LUMEN CATHETER PLACEMENT: Indication: Hemodynamic monitoring/Intravenous access. A time-out was completed verifying correct patient, procedure, site, positioning, and implant(s) or special equipment if applicable. The patient was placed in a dependent position appropriate for triple lumen catheter placement based on the vein to be cannulated. The patient's left neck was prepped and draped in sterile fashion. 1% Lidocaine was used to anesthetize the surrounding skin area. A triple lumen 9F Cordis catheter was introduced into the left internal jugular vein using Seldinger technique. The catheter was threaded smoothly over the guide wire and appropriate blood return was obtained. Each lumen of the catheter was evacuated of air and flushed with sterile saline. The catheter was then sutured in place to the skin and a sterile dressing applied. Perfusion to the extremity distal to the point of catheter insertion was checked and found to be adequate. There was no immediate complication. There was good blood return from all 3 ports. The patient tolerated the procedure well. The catheter was sutured in place. Sterile dressing was applied by the nurse. A chest x-ray will be ordered for placement. MMODL / IJN: [id number] /
--- NOTE | 2020-07-13 16:46 | PCN ---
PROCEDURE NOTE PULMONARY/CRITICAL CARE PROCEDURE NOTE: PROCEDURE PERFORMED: Right femoral arterial line. PREOP DIAGNOSIS: Frequent blood draws and blood gas monitoring. POSTOP DIAGNOSIS: Frequent blood draws and blood gas monitoring. OPERATORS: Dr. Hansen and Dr. Jett. ARTERIAL LINE PLACEMENT: Indications: Hemodynamic monitoring. A time-out was completed verifying correct patient, procedure, site, positioning, and implant(s) or special equipment if applicable. Chris's test was performed to ensure adequate perfusion. The patient's right groin was prepped and draped in sterile fashion. 1% Lidocaine was used to anesthetize the area. An 18G Arrow arterial line was introduced into the radial/femoral artery. The catheter was threaded over the guide wire and the needle was removed with appropriate pulsatile blood return. Blood loss was minimal. The catheter was then sutured in place to the skin and a sterile dressing applied. Perfusion to the extremity distal to the point of catheter insertion was checked and found to be adequate. The patient tolerated the procedure well and there were no complications. There was good waveform on blood pressure readings. The catheter was sutured in place. Sterile dressing was applied by the nurse. There was no immediate complication. MMODL / IJN: [id number] /
--- NOTE | 2020-07-13 16:52 | PCN ---
PROCEDURE NOTE PULMONARY/CRITICAL CARE PROCEDURE NOTE: PROCEDURE PERFORMED: Re-intubation. REASON FOR RE-INTUBATION: Failed endotracheal tube. POSTOP DIAGNOSIS: Failed endotracheal tube. OPERATORS: Dr. Hansen and Dr. Jett. PROCEDURE: The procedure was done at the bedside. The #8 endotracheal tube was poorly functional. It was replaced with another #8 endotracheal tube. We used the stylet or the Bougie to do the replacement. The stylet was placed in the current endotracheal tube at 45 cm. The old endotracheal tube was removed. The new endotracheal tube, a #8 tube, was placed over the stylet. It was placed at 23 cm at the lip. The patient tolerated the procedure well. There was no complications. Air was placed into the balloon. The patient was then connected to the ventilator. The patient tolerated the procedure well. There was no immediate complication. The endotracheal tube was secured. MMODL / IJN: [id number] /
--- NOTE | 2020-07-16 09:11 | CDI ---
Documentation Clarification Form Date: 07/16/20 From: Delia Vicente Phone: If you have a question about this query, please contact Elva Dietrich, [employer] at [phone] between 8am and 5pm. Admit Date: 07/12/20 Discharge Date: 07/13/20 Patient Name: EARL GRIFFIN Visit Number: [id number] ATTENTION: The Clinical Documentation Specialists (CDI) and [facility] Coding Staff appreciate your assistance in clarifying documentation. Please respond to the clarification below the line at the bottom and electronically sign. The CDI & [facility] Coding staff will review the response and follow-up if needed. Please note: Queries are made part of the Legal Health Record. If you have any questions, please contact the author of this message via ITS. Dear Dr. Fletcher Hansen, Atrial Fibrillation is documented in your consult. He was admitted yesterday with a diagnosis of increasing heart rate which was atrial fibrillation with RVR, and a esa-AR-puurcla elevation myocardial infarction. History/Risk Factors: Non-ST MT , third degree AV block, Ventricular tachycardia, cardiac arrest, CAD, in-stent stenosis, ischemic cardiomyopathy Clinical Indicators: Examination reveals regular rhythm and rate.S1, S2 normal. No S3, S4, or murmur.Heart rate about 93 beats per minute. EKG/telemetry: Wide QRS tachycardia, RBBB, left posterior fascicular block Treatment: Cardizem bolus, IV Cardizem, IV Adenocard, IV Amiodarone, cardioversion In your professional opinion, can you please clarify the type of Atrial Fibrillation, if known? Chronic Permanent Paroxysmal Persistent, longstanding Persistent, other Persistent, permanent Other, please specify Unable to determine unable to determine MTDD
--- NOTE | 2020-07-16 09:20 | CDI ---
Documentation Clarification Form Date: 07/16/20 From: Delia Vicente Phone: If you have a question about this query, please contact Elva Dietrich, [employer] at [phone] between 8am and 5pm. Admit Date: 07/12/20 Discharge Date: 07/13/20 Patient Name: EARL GRIFFIN Visit Number: [id number] ATTENTION: The Clinical Documentation Specialists (CDI) and [facility] Coding Staff appreciate your assistance in clarifying documentation. Please respond to the clarification below the line at the bottom and electronically sign. The CDI & [facility] Coding staff will review the response and follow-up if needed. Please note: Queries are made part of the Legal Health Record. If you have any questions, please contact the author of this message via ITS. Dear Dr. Paul Graham, Atrial Flutter is documented in your consult. He was found to be in wide complex tachycardia. There was suspiciion of atrial flutter with 2:1 block and heart rate of 160 and therefore adnosine 6 mg and 13 mg was given without any improvement. History/Risk factors: : Non-ST MD , third degree AV block, Ventricular tachycardia, cardiac arrest, CAD, in-stent stenosis, ischemic cardiomyopathy Clinical Indicators: : Examination reveals regular rhythm and rate. S1, S2 normal. No S3, S4, or murmur. Heart rate about 93 beats per minute. EKG/telemetry: KG reveals initial EKG at 944 showed a wide complex tachycardia with a rate of 156 with a right bundle branch block and left posterior fascicular block morphology diffuse nonspecific ST-T wave abnormalities. Appears to be flutter waves marching through the ST segments. Repeat EKG after cardioversion shows what appears to be an alternating atrial bigeminy with rates of 53 and right bundle branch morphology and diffuse T-wave inversions. Treatment: Cardizem bolus, IV Cardizem, IV Adenocard, IV Amiodarone, cardioversion In your professional opinion, in order to capture the severity of condition; can you please clarify the type of Atrial Flutter if known? Typical/Type I Atypical/Type II Other, please specify Unable to determine Unable to determine type of atrial flutter given wide complex rhythm/EKG and unresponsive to Adenosine. Paul Graham, DO [facility]
--- NOTE | 2020-07-16 16:45 | ECHOF ---
Referral Reason:NSTEMI MEASUREMENTS -------- HEIGHT: 175.3 cm WEIGHT: 73.0 kg BP: 111/78 IVSd: 1.6 cm (0.6 - 1.1) LVIDd: 4.4 cm (3.9 - 5.3) LVPWd: 1.5 cm (0.6 - 1.1) EDV(Teich): 88 ml IVSs: 1.9 cm LVIDs: 3.7 cm LVPWs: 1.6 cm %IVS Thck: 21 % ESV(Teich): 58 ml EF(Teich): 33 % %FS: 16 % SV(Teich): 29 ml LA Diam: 4.2 cm (2.7 - 3.8) RVIDd: 3.8 cm (< 3.3) IVC: 26.13 mm LVLd A2C: 8.9 cm LVEDV MOD A2C: 108 ml LVLs A2C: 8.2 cm LVESV MOD A2C: 91 ml LVEF MOD A2C: 16 % SV MOD A2C: 18 ml LALs A4C: 6.3 cm LAAs A4C: 24.7 cm LAESV A-L A4C: 82 ml LAESV MOD A4C: 78 ml LALs A2C: 5.7 cm LAAs A2C: 18.2 cm LAESV A-L A2C: 49 ml LAESV MOD A2C: 49 ml LAESV(A-L): 67 ml LAESV Index (A-L): 35.57 ml/m HR_4Ch_Q: 87 bpm LVVED_4Ch_Q: 147 ml LVVES_4Ch_Q: 112 ml LVEF_4Ch_Q: 24 % LVSV_4Ch_Q: 35 ml LVCO_4Ch_Q: 3.0 l/min LVLs_4Ch_Q: 8.3 cm LVLd_4Ch_Q: 8.9 cm Ao Diam: 3.4 cm (2.0 - 3.7) AV Cusp: 1.7 cm (1.5 - 2.6) EPSS: 1.2 cm MV E Mario: 0.83 m/s MV DecT: 111 ms MV Dec [place]: 7.5 m/s MV A Mario: 0.50 m/s MV E/A Ratio: 1.66 MV PHT: 32 ms AV Vmax: 1.39 m/s AV maxP.80 mmHg AR Vmax: 4.14 m/s AR maxP.54 mmHg AR PHT: 670 ms AR Dec Time: 2311 ms AR Dec [place]: 1.8 m/s TR Vmax: 3.79 m/s TR maxP.58 mmHg RAP: 15.00 mmHg RVSP: 72.58 mmHg MV EF SLOPE: 120.82 mm/s (70 - 150) MV EXCURSION: 18.74 mm (> 18.000) RV S Prime: 0.06 m/s TAPSE: 14.84 mm FINDINGS -------- This was a technically adequate study. The left ventricular size is normal. There is moderate concentric left ventricular hypertrophy. O verall left ventricular systolic function is severely impaired with, an EF between 20 - 25 %. The right ventricle is mild to moderately enlarged. LA is moderately dilated 34-39 ml/m2 The right atrium is moderately enlarged. Interatrial and interventricular septum intact. There is severe aortic valve calcifcation with decreased leaflet motion. Poor doppler signals obtain ed and aortic stenosis visually appears at least moderate. Degree of aortic stenosis may be underest imated given low flow state. There is egno-dn-zmuuqjji aortic regurgitation. The mitral valve leaflets are mildly thickened. Mild mitral annular calcification present. Modera ge-vj-qrinwd mitral regurgitation is present. Moderate to severe tricuspid regurgitation present. There is severe pulmonary hypertension. The r ight ventricular systolic pressure, as measured by Doppler, is 72.58mmHg. Trace/mild (physiologic) pulmonic regurgitation. The aortic root size is normal. The inferior vena cava is dilated with no significant inspiratory collapse which is consistent estima rosy right atrial pressure of >15 mmHg. There is no pericardial effusion. CONCLUSIONS -------- 1. The left ventricular size is normal. 2. There is moderate concentric left ventricular hypertrophy. 3. Overall left ventricular systolic function is severely impaired with, an EF between 20 - 25 %. 4. The right ventricle is mild to moderately enlarged. 5. LA is moderately dilated 34-39 ml/m2 6. The mitral valve leaflets are mildly thickened. 7. Mild mitral annular calcification present. 8. Qzuidwmb-le-cqrghg mitral regurgitation is present. 9. There is severe pulmonary hypertension. 10. The right ventricular systolic pressure, as measured by Doppler, is 72.58mmHg. 11. The inferior vena cava is dilated with no significant inspiratory collapse which is consistent es timated right atrial pressure of >15 mmHg. 12. There is no pericardial effusion. 13. Moderate aortic stenosis visually however degree of aortic stenosis may be underestimated given low flow state. WAREHOUSE MATERIAL HANDLER: Catherine Canales RDCS
--- NOTE | 2020-07-24 10:34 | CDI ---
Documentation Clarification Form Date: 07/24/20 From: Delia Vicente Phone: If you have a question about this query, please contact Elva Dietrich, Golf Manager at [phone] between 8am and 5pm. Admit Date: 07/12/20 Discharge Date: 07/13/20 Patient Name: EARL GRIFFIN Visit Number: [id number] ATTENTION: The Clinical Documentation Specialists (CDI) and [facility] Coding Staff appreciate your assistance in clarifying documentation. Please respond to the clarification below the line at the bottom and electronically sign. The CDI & [facility] Coding staff will review the response and follow-up if needed. Please note: Queries are made part of the Legal Health Record. If you have any questions, please contact the author of this message via ITS. Dear Dr. Paul Graham, The diagnosis of borderline hypotension, rule out cardiogenic shock was documented in your consult, but is not noted in subsequent documentation. History/Risk Factors: Non-ST SC , third degree AV block, Ventricular tachycardia, cardiac arrest, CAD, in-stent stenosis, ischemic cardiomyopathy Clinical Indicators: BP-98/54, 89/61, 87/52, 108/63, 100/23, 107/70, 82/45 Treatment: Heparin drip, IV fluids Please clarify if the patient was in cardiogenic shock: Present/active this admission Cardiogenic shock ruled out Other, please specify Clinically unable to determine Clinically unable to determine MTDD
--- NOTE | 2020-07-31 11:22 | P.DS ---
Providers Date of admission: 07/12/20 11:20 Expected date of discharge: 07/13/20 Attending physician: Clifton Blake Consults: 07/12/20 11:20 Consult Physician Urgent Consulting Provider: [facility] Consult Reason/Comments: Non-STEMI Do you want consulting provider notified?: Yes 07/12/20 13:27 Consult Physician Stat Consulting Provider: Fletcher Hansen Reason/Comments: ICU Management Do you want consulting provider notified?: Already Contacted Primary care physician: Clifton Blake [facility] Course: 85-year-old male one of my office patient with multiple medical problem was known to have history of advance cardiovascular disease who had CABG in also had an angioplasty in 1999 and 2012 developed to have atrial fibrillation with rapid ventricular spine patient was hospitalized last few weeks ago for ROM severe A. fib with RVR was treated done well. Patient apparently was working in a motorcycle in his shop yesterday when he developed to have slight frustration developed to have midsternal chest pain along with worsening shortness of breath lasted through the night he continued to have significant shortness of breath with minimum exertion. Patient ended up calling the office salesperson meats and was to come to the office to be seen was instructed to come to the emergency department where was seen and evaluated patient had wide QRS complex tachycardia with pulse rate running 160 beats per minutes. Ended up getting adenosine then Cardizem then amiodarone were patient developed to have significant hypertension afterward patient ended up being cardioverted to bring his pulse rate down to 40 and 50 become more stable. Patient ended up going to the civil laboratory technician by Dr. Graham finding patent RCA stent with diffuse mild to moderate disease of up to 40% of the RCA, appears to be patent ALEXANDREA to LAD proximally with poorly visualized secondary to ambulation and tortuosity, also severe left-sided disease with a pre-area measured 99% blockage of the left main stenosis. No angioplasty was done patient chest pain has improved after his heart cath. Was kept on heparin drip and admitted to the ICU afterward. Patient is more hemodynamically stable with the pulse rate slower. 07/13: On the afternoon of July 13, patient went into complete heart block and subsequently patient coded. Please see code sheet for details. Patient did have an emergent central line and arterial line placed. Family was updated and patient was made DO NOT RESUSCITATE. Patient was extubated and comfort measures were started. Patient on July 13. Please see nursing documentation for details. Discharge diagnoses: 1 wide complex tachycardia most likely ventricular arrhythmia 2 non-ST elevated myocardial infarction 3 significant coronary disease post CABG in 83 with multiple angioplasty with severe stenosis of the LAD along with the RCA 4 A. fib with RVR, paroxysmal atrial fibrillation, atrial flutter-unable to determine type 5 ischemic cardiopathy 6 hyperlipidemia 7 hypertension 8 hyperglycemia 10 hyperkalemia Impression and plan of care have been directed as dictated by the signing physician. Tahira Ospina nurse practitioner acting as scribe for signing physician. Patient Condition at Discharge: Undetermined Plan - Discharge Summary Discharge Rx Participant: No New Discharge Prescriptions: No Action Multivit-Min/FA/Lycopen/Lutein [Centrum Silver Tablet] 1 tab PO DAILY Ibuprofen [Advil] 200 mg PO Q8H PRN PRN Reason: Pain Ubidecarenone [Co Q-10] 100 mg PO BID lisinopriL [Zestril] 2.5 mg PO DAILY carvediloL [Coreg] 3.125 mg PO BID Atorvastatin [Lipitor] 10 mg PO HS Nitroglycerin Sl Tabs [Nitrostat] 0.4 mg SL Q5M PRN PRN Reason: Chest Pain Aspirin EC [Ecotrin Low Dose] 81 mg PO DAILY #30 tablet. Isosorbide Mononitrate ER [Imdur] 30 mg PO DAILY Discharge Medication List Atorvastatin [Lipitor] 10 mg PO HS 04/04/20 [History] Ibuprofen [Advil] 200 mg PO Q8H PRN 04/04/20 [History] Multivit-Min/FA/Lycopen/Lutein [Centrum Silver Tablet] 1 tab PO DAILY 04/04/20 [History] Nitroglycerin Sl Tabs [Nitrostat] 0.4 mg SL Q5M PRN 04/04/20 [History] Ubidecarenone [Co Q-10] 100 mg PO BID 04/04/20 [History] carvediloL [Coreg] 3.125 mg PO BID 04/04/20 [History] lisinopriL [Zestril] 2.5 mg PO DAILY 04/04/20 [History] Aspirin EC [Ecotrin Low Dose] 81 mg PO DAILY #30 tablet. 04/06/20 [Rx] Isosorbide Mononitrate ER [Imdur] 30 mg PO DAILY 07/12/20 [History] Follow up Appointment(s)/Referral(s): Clifton Blake MD [Primary Care Provider] - 1-2 days Discharge Disposition: - Preliminary Cause of Preliminary Cause of : non-ST elevated myocardial infarction
== END 2020-07-13 16:56 | disposition expired ==
LOC: EC 09:33 → 3SCARD 11:20 → 2SICU 13:30
PROVIDERS: ADMIT Internal Medicine Geriatric Medicine; ATTEND Internal Medicine Geriatric Medicine
PROC: B2111ZZ Fluoroscopy of Multiple Coronary Arteries using Low Osmolar Contrast (ICD-10-PCS; 2020-07-12)
PROC: B2171ZZ Fluoroscopy of Right Internal Mammary Bypass Graft using Low Osmolar Contrast (ICD-10-PCS; 2020-07-12)
PROC: 5A2204Z Restoration of Cardiac Rhythm, Single (ICD-10-PCS; 2020-07-12)
PROC: 0BH17EZ Insertion of Endotracheal Airway into Trachea, Via Natural or Artificial Opening (ICD-10-PCS; principal; 2020-07-13)
PROC: 5A12012 Performance of Cardiac Output, Single, Manual (ICD-10-PCS; principal; 2020-07-13)
PROC: 5A1935Z Respiratory Ventilation, Less than 24 Consecutive Hours (ICD-10-PCS; principal; 2020-07-13)
PROC: 4A133J1 Monitoring of Arterial Pulse, Peripheral, Percutaneous Approach (ICD-10-PCS; 2020-07-13)
PROC: 05HN33Z Insertion of Infusion Device into Left Internal Jugular Vein, Percutaneous Approach (ICD-10-PCS; 2020-07-13)
PROC: 04HY32Z Insertion of Monitoring Device into Lower Artery, Percutaneous Approach (ICD-10-PCS; 2020-07-13)
PROC: 4A133B1 Monitoring of Arterial Pressure, Peripheral, Percutaneous Approach (ICD-10-PCS; 2020-07-13)
PROC: 5A12012 Performance of Cardiac Output, Single, Manual (ICD-10-PCS; 2020-07-13)
PROC: 0B21XEZ Change Endotracheal Airway in Trachea, External Approach (ICD-10-PCS; 2020-07-13)
DX: I21.4 Non-ST elevation (NSTEMI) myocardial infarction (principal); I44.2 Atrioventricular block, complete; I47.2 Ventricular tachycardia; I48.92 Unspecified atrial flutter; I45.2 Bifascicular block; I46.2 Cardiac arrest due to underlying cardiac condition; I95.9 Hypotension, unspecified; I11.9 Hypertensive heart disease without heart failure; L40.50 Arthropathic psoriasis, unspecified; I73.9 Peripheral vascular disease, unspecified; I48.91 Unspecified atrial fibrillation; I25.10 Atherosclerotic heart disease of native coronary artery without angina pectoris; I25.5 Ischemic cardiomyopathy; I25.84 Coronary atherosclerosis due to calcified coronary lesion; R00.1 Bradycardia, unspecified; R73.9 Hyperglycemia, unspecified; E87.5 Hyperkalemia; E78.5 Hyperlipidemia, unspecified; E78.00 Pure hypercholesterolemia, unspecified; I25.2 Old myocardial infarction; G89.29 Other chronic pain; M54.5 Low back pain; E66.9 Obesity, unspecified; Z68.28 Body mass index [BMI] 28.0-28.9, adult; F17.290 Nicotine dependence, other tobacco product, uncomplicated; Z95.1 Presence of aortocoronary bypass graft; Z79.82 Long term (current) use of aspirin; Z79.899 Other long term (current) drug therapy; Z95.5 Presence of coronary angioplasty implant and graft; Z87.81 Personal history of (healed) traumatic fracture; Z87.442 Personal history of urinary calculi; Z90.49 Acquired absence of other specified parts of digestive tract; Z87.19 Personal history of other diseases of the digestive system; Z98.890 Other specified postprocedural states; Z88.0 Allergy status to penicillin; Z88.2 Allergy status to sulfonamides; Z83.6 Family history of other diseases of the respiratory system; Z82.49 Family history of ischemic heart disease and other diseases of the circulatory system
CPT/HCPCS: 36415; 71046; 76705; 80053; 80061; 83735; 83880; 84484; 85025; 85610; 85730; 92960; 93005; 93306; 93455; 94002; 96365; 96366; 96368; 96375; 96376; 99291